=== PATIENT | male | born 1940 | race Caucasian/White ===

== ENCOUNTER → 2016-09-07 | Outpatient (CLI) | payer BC | END | disposition home or self-care (01) | LOC: C.LAB1850 07:50 | PROVIDERS: ATTEND Urology | DX: Z12.5 Encounter for screening for malignant neoplasm of prostate (principal) ==

== ENCOUNTER → 2017-03-17 | Outpatient (CLI) | payer BC ==
[2017-03-17 13:15] LABS: LYME DISEASE AB IGG NEG (NEG); LYME DISEASE AB IGM NEG (NEG)
== END | disposition home or self-care (01) ==
LOC: C.LAB1850 10:41
PROVIDERS: ATTEND Physician Assistant
DX: M79.1 Myalgia (principal)

== ENCOUNTER → 2017-11-26 | Outpatient (CLI) | payer OTHER ==
--- NOTE | 2017-11-26 13:45 | DIAGNOSTIC IMAGING REPORT ---
BILATERAL LOWER EXTREMITY VENOUS DOPPLER STUDY CLINICAL HISTORY: DIMINISHED PULSE BILATERAL COMPARISON STUDY: None. FINDINGS: Minimal scattered calcified plaque within the bilateral lower extremity arterial systems. Normal velocities and phasic waveforms seen throughout. No elevated velocities to suggest an abscess. No areas of arterial occlusion. The ABIs were unable to be performed due to a machine malfunction. IMPRESSION: No significant stenosis or occlusion within the bilateral lower extremity arterial systems. Electronically signed by: Seth Roman M.D. 11/26/2017 1:43 PM Dictated Date/Time: 11/26/2017 1:41 PM
== END | disposition home or self-care (01) ==
LOC: C.ULTR 12:10
PROVIDERS: ATTEND Orthopaedic Surgery Sports Medicine
DX: R09.89 Other specified symptoms and signs involving the circulatory and respiratory systems (principal)

== ENCOUNTER 2019-12-14 13:39 | Observation (INO) ==
[2019-12-14] MEDS ORDERED: OPTIRAY 320 125ml IV ONE (14:07)
--- NOTE | 2019-12-14 14:08 | Emergency Department Note ---
History of Present Illness General Chief complaint: Neuro Symptoms/Deficit Stated complaint: TROUBLE SPEAKING Time Seen by Provider: 12/14/19 13:53 History of Present Illness Maximum Pain Intensity: 0 This is a 79-year-old male presenting to the emergency department accompanied by his son for evaluation of difficulty speaking. The patient is reportedly usually healthy and was working outside with his son today. Evidently around 1 PM to 1:15 PM, roughly 30 minutes prior to arrival, the patient was noted to have difficulty with using his words. The patient was able to speak, however he could not complete sentences or express his thoughts fully. The son states he noticed this very distinctly, and was a large change from earlier this morning. The patient is not having headache, lightheadedness, dizziness, neck pain, chest pain, chest tightness, or shortness of breath. He feels like he is able to move his arms and legs without difficulty. He does not report any weakness or heaviness into the hands or feet The patient has not had any recent travel history. He does not have a history of dysrhythmia or stroke himself. No strong family history of similar episodes. He did have a colonoscopy a week ago that was reportedly unremarkable. The patient himself rates his discomfort a 0/10. Home Medications Home Medications Medication Instructions Recorded Confirmed Type No Known Home Medications 12/14/19 12/14/19 History Allergies Allergy/AdvReac Type Severity Reaction Status Date / Time No Known Drug Allergies Allergy Verified 12/14/19 14:21 Past Med/Surg History Medical History (Updated 12/14/19 @ 20:54 by Severo Zuniga MD) BPH (benign prostatic hyperplasia) H/O Mohs micrographic surgery for skin cancer Hyperlipidemia Osteoarthritis Surgical History (Updated 11/28/19 @ 10:06 by Deja Franco RN) H/O shoulder surgery bilat History of arthroscopy of knee left History of colonoscopy Hx of surgical procedure removal of tongue growth with lazer> 5 yrs ago S/P trigger finger release left Family History Mother Diabetes Other No family history of adverse response to anesthesia Social History Smoking Status: Never smoker Second Hand Exposure: No; Hx Alcohol Use: Yes Alcohol type: beer Hx Substance Use: No Preferred Language: Estonian Communication Ability: Effective Tai Chi Instructor Required: No Beliefs That Will Affect Care: None Current Living Situation: Family Feels Safe at Home: Yes Physical Activity Frequency: Daily Review of Systems A total of 10 systems reviewed and were otherwise negative Physical Exam Vital Signs Vital Signs - 24 hr 12/14/19 13:41 12/14/19 14:02 12/14/19 14:19 Temperature 36.8 C Temperature Source Oral Pulse Rate 93 H 94 H 104 H Pulse Rate from SpO2 Sensor Respiratory Rate 20 20 16 Blood Pressure 183/105 H Blood Pressure Mean 131 Pulse Oximetry 97 Oxygen Delivery Method Room Air Sepsis Recent Fever Within 48 Hours No Sepsis New/Unexplained Change in Mental Status No Sepsis Action Taken by Nursing No Action Required 12/14/19 14:20 12/14/19 14:30 12/14/19 14:40 Temperature Temperature Source Pulse Rate 109 H 105 H 96 H Pulse Rate from SpO2 Sensor Respiratory Rate 15 21 20 Blood Pressure Blood Pressure Mean Pulse Oximetry Oxygen Delivery Method Sepsis Recent Fever Within 48 Hours Sepsis New/Unexplained Change in Mental Status Sepsis Action Taken by Nursing 12/14/19 14:50 12/14/19 15:00 12/14/19 15:01 Temperature Temperature Source Pulse Rate 92 H 85 85 Pulse Rate from SpO2 Sensor Respiratory Rate 23 26 H 25 H Blood Pressure 153/88 H Blood Pressure Mean 109 Pulse Oximetry Oxygen Delivery Method Sepsis Recent Fever Within 48 Hours Sepsis New/Unexplained Change in Mental Status Sepsis Action Taken by Nursing 12/14/19 15:28 12/14/19 15:30 12/14/19 15:40 Temperature Temperature Source Pulse Rate 69 78 67 Pulse Rate from SpO2 Sensor 78 68 Respiratory Rate 23 22 22 Blood Pressure Blood Pressure Mean Pulse Oximetry 95 95 Oxygen Delivery Method Sepsis Recent Fever Within 48 Hours Sepsis New/Unexplained Change in Mental Status Sepsis Action Taken by Nursing 12/14/19 15:50 12/14/19 16:00 12/14/19 16:10 Temperature Temperature Source Pulse Rate 72 75 68 Pulse Rate from SpO2 Sensor 73 75 70 Respiratory Rate 22 15 14 Blood Pressure Blood Pressure Mean Pulse Oximetry 94 95 94 Oxygen Delivery Method Sepsis Recent Fever Within 48 Hours Sepsis New/Unexplained Change in Mental Status Sepsis Action Taken by Nursing 12/14/19 16:20 12/14/19 16:30 Temperature Temperature Source Pulse Rate 70 72 Pulse Rate from SpO2 Sensor 71 74 Respiratory Rate 21 24 Blood Pressure Blood Pressure Mean Pulse Oximetry 97 96 Oxygen Delivery Method Sepsis Recent Fever Within 48 Hours Sepsis New/Unexplained Change in Mental Status Sepsis Action Taken by Nursing VITALS: Vitals are noted on the nurse's note and reviewed by myself. Vital signs stable. GENERAL: Well appearing white male who is cooperative with the examination. He is not slurring his words, but has distinct expressive aphasia HEAD: Normocephalic atraumatic. EARS: External ear normal. External auditory canals clear, tympanic membranes pearly nogueira without erythema or effusion bilaterally. EYES: Pupils equal round and reactive to light and accommodation. Conjunctivae without injection, sclerae without icterus. Extraocular movements intact. NOSE: Patent, turbinates without inflammation or discharge. MOUTH: Mucous membranes moist. Tonsils are not enlarged. Pharynx without erythema, blood, or exudate. Uvula midline. Airway patent. NECK: Supple without nuchal rigidity. No lymphadenopathy. No thyromegaly. Cervical spine is nontender. HEART: Regular rate and rhythm without murmurs gallops or rubs. LUNGS: Clear to auscultation bilaterally without wheezes, rales or rhonchi. No retractions or accessory muscle use. ABDOMEN: Positive normal bowel sounds x 4. Soft, nontender, without masses or organomegaly. No guarding or rebound tenderness. MUSCULOSKELETAL: No muscle atrophy, erythema, or edema noted. Full range of motion in all extremities. Patient was able to walk in and out of the bathroom without notable deficit. Reading Recovery Teacher strength is 5/5. He is with full strength to the bilateral upper and lower extremities. NEURO: Patient was alert and oriented to person place and time. No facial droop noted. Normal [id number]. Course Administered Medications Discontinued Medications Aspirin (Aspirin Chew 324 Mg) 324 mg PO NOW STA Stop: 12/14/19 14:42 Last Admin: 12/14/19 14:50 Dose: 324 mg Documented by: [id number] Ioversol (Optiray 320 125ml) 120 ml IV ONCE ONE Stop: 12/14/19 14:08 Last Admin: 12/14/19 14:08 Dose: 120 ml Documented by: [id number] Critical Care Time I have personally spent greater than 30 minutes of critical care time in the direct management of this patient. This includes bedside care, interpretation of diagnostic studies, and testing, discussion with consultants, patient, and family members, and other required patient management activities. This 30 minutes is in excess of all separately billable procedures. Medical Decision Making Differential Diagnosis Differential includes acute coronary syndrome, myocardial infarction, CVA, TIA, anemia, infection, pneumonia, UTI, pyelonephritis, poor nutrition, dehydration, electrolyte disturbance,hypoglycemia. Laboratory Data Result diagrams: 12/14/19 14:06 12/14/19 14:06 Lab Results 12/14/19 12/14/19 12/14/19 Range/Units 14:04 14:06 14:06 WBC 6.08 (4.8-10.8) K/uL RBC 4.90 (4.7-6.1) M/uL Hgb 16.9 (14.0-18.0) g/dL Hct 47.6 (42-52) % MCV 97.1 (80-100) fL MCH 34.5 H (25-34) pg MCHC 35.5 (32-36) g/dL RDW Std Deviation 45.3 (36.4-46.3) fL RDW Coeff of Elo 12.8 (11.5-14.5) % Plt Count 218 (130-400) K/uL MPV 9.2 (7.4-10.4) fL Immature Gran % (Auto) 0.2 % Neut % (Auto) 55.7 % Lymph % (Auto) 32.1 % Winkler % (Auto) 6.7 % Eos % (Auto) 4.6 % Baso % (Auto) 0.7 % Neut # (Auto) 3.39 (1.4-6.5) K/uL Lymph # (Auto) 1.95 (1.2-3.4) K/uL Winkler # (Auto) 0.41 (0.11-0.59) K/uL Eos # (Auto) 0.28 (0-0.5) K/uL Baso # (Auto) 0.04 (0-0.2) K/uL Immature Gran # (Auto) 0.01 (0.00-0.02) K/uL PT (9.0-12.0) Seconds INR (0.9-1.1) APTT (21.0-31.0) Seconds PTT Ratio Sodium (136-145) mmol/L Potassium (3.5-5.1) mmol/L Chloride (98-107) mmol/L Carbon Dioxide (21-32) mmol/L Anion Gap (3-11) BUN (7-18) mg/dl Creatinine (0.6-1.4) mg/dl Est Cr Clr Drug Dosing ml/min Est GFR ( Amer) Est GFR (Non-Af Amer) BUN/Creatinine Ratio (10-20) Glucose (70-99) mg/dl POC Glucose 103 H (70-99) mg/dl Calcium (8.5-10.1) mg/dl Magnesium (1.8-2.4) mg/dl Total Bilirubin (0.2-1) mg/dl AST (15-37) U/L ALT (12-78) U/L Alkaline Phosphatase (45-117) U/L Troponin I (0-0.045) ng/ml Total Protein (6.4-8.2) gm/dl Albumin (3.4-5.0) gm/dl Globulin (2.5-4.0) gm/dl Albumin/Globulin Ratio (0.9-2) Urine Color Urine Appearance (Clear) Urine pH (4.5-7.5) Ur Specific [place] (1.000-1.030) Urine Protein (Negative) Urine Glucose (UA) (Negative) Urine Ketones (Negative) Urine Blood (Negative) Urine Nitrite (Negative) Urine Bilirubin (Negative) Urine Urobilinogen (Negative) Ur Leukocyte Esterase (Negative) Blood Type A Positive Antibody Screen NEGATIVE 12/14/19 12/14/19 12/14/19 Range/Units 14:06 14:06 14:31 WBC (4.8-10.8) K/uL RBC (4.7-6.1) M/uL Hgb (14.0-18.0) g/dL Hct (42-52) % MCV (80-100) fL MCH (25-34) pg MCHC (32-36) g/dL RDW Std Deviation (36.4-46.3) fL RDW Coeff of Elo (11.5-14.5) % Plt Count (130-400) K/uL MPV (7.4-10.4) fL Immature Gran % (Auto) % Neut % (Auto) % Lymph % (Auto) % Winkler % (Auto) % Eos % (Auto) % Baso % (Auto) % Neut # (Auto) (1.4-6.5) K/uL Lymph # (Auto) (1.2-3.4) K/uL Winkler # (Auto) (0.11-0.59) K/uL Eos # (Auto) (0-0.5) K/uL Baso # (Auto) (0-0.2) K/uL Immature Gran # (Auto) (0.00-0.02) K/uL PT 11.5 (9.0-12.0) Seconds INR 1.1 (0.9-1.1) APTT 29.8 (21.0-31.0) Seconds PTT Ratio 1.1 Sodium 135 L (136-145) mmol/L Potassium 4.0 (3.5-5.1) mmol/L Chloride 103 (98-107) mmol/L Carbon Dioxide 23 (21-32) mmol/L Anion Gap 8.0 (3-11) BUN 12 (7-18) mg/dl Creatinine 1.13 (0.6-1.4) mg/dl Est Cr Clr Drug Dosing 60.4 ml/min Est GFR ( Amer) 71.8 Est GFR (Non-Af Amer) 61.9 BUN/Creatinine Ratio 10.6 (10-20) Glucose 101 H (70-99) mg/dl POC Glucose (70-99) mg/dl Calcium 9.3 (8.5-10.1) mg/dl Magnesium 2.2 (1.8-2.4) mg/dl Total Bilirubin 1.3 H (0.2-1) mg/dl AST 19 (15-37) U/L ALT 34 (12-78) U/L Alkaline Phosphatase 74 (45-117) U/L Troponin I < 0.015 (0-0.045) ng/ml Total Protein 7.7 (6.4-8.2) gm/dl Albumin 4.1 (3.4-5.0) gm/dl Globulin 3.6 (2.5-4.0) gm/dl Albumin/Globulin Ratio 1.1 (0.9-2) Urine Color Yellow Urine Appearance Clear (Clear) Urine pH 6.0 (4.5-7.5) Ur Specific [place] 1.009 (1.000-1.030) Urine Protein Negative (Negative) Urine Glucose (UA) Negative (Negative) Urine Ketones Negative (Negative) Urine Blood Negative (Negative) Urine Nitrite Negative (Negative) Urine Bilirubin Negative (Negative) Urine Urobilinogen Negative (Negative) Ur Leukocyte Esterase Negative (Negative) Blood Type Antibody Screen Imaging Data Radiologist's Impression: CT head/brain wo con CLINICAL HISTORY: Stroke evaluation COMPARISON STUDY: 11/24/2018 TECHNIQUE: Axial CT of the brain is performed from the vertex to the skull base. IV contrast was not administered for this examination. A dose lowering technique was utilized adhering to the principles of ALARA. CT DOSE: FINDINGS: No intra or extra-axial mass lesions are visualized. There is no CT evidence of acute cortical infarction. There is no evidence of midline shift. There is no acute hemorrhage. No calvarial fractures are visualized. There are patchy moderate matter hypodensities likely on a small vessel basis. There is mild ventricular dilatation similar to the prior study and likely secondary to volume loss There is mild ethmoid mucosal thickening IMPRESSION: No acute intracranial findings CT angio head w con CLINICAL HISTORY: 79 years-old Male with Stroke evaluation . Acute strokelike symptoms COMPARISON STUDY: Head CT and CTA head neck of same day TECHNIQUE: Following the IV administration of 120 cc of Optiray 320, CT angiogram of the brain was performed from the skull base to the vertex. Images are reviewed in the axial, sagittal, and coronal planes. 3-D MIPS images are created and assessed. IV contrast was administered without complication. All measurements were obtained according to NASCET criteria. A dose lowering technique was utilized adhering to the principles of ALARA. CT DOSE: 1321.93 mGy.cm FINDINGS: CT ANGIOGRAM OF THE BRAIN: There is mild calcified plaque of the cavernous and supraclinoid segments of the internal carotid arteries without high-grade stenosis. The right anterior cerebral artery is patent and normal. The left anterior cerebral artery is not visualized and may be developmentally diminutive. Imaged vertebral arteries appear patent. The basilar artery is patent. There is a 4 mm segment of high- grade stenosis involving the right P1 segment on image 95 series 5. The left posterior cerebral artery is patent. Cerebral venous sinuses are patent. Age-related involutional changes. Patchy white matter hypodensities suggestive of chronic microvascular ischemic disease. No abnormal intracranial enhancement mild mucosal thickening of the paranasal sinuses. Mastoid air cells are clear. IMPRESSION: 1. 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 2. No additional high-grade stenosis, aneurysm, dissection, or proximal branch occlusion. CT angio neck with con CLINICAL HISTORY: Stroke evaluation COMPARISON STUDY: No previous studies for comparison. TECHNIQUE: CT angiography was performed from the aortic arch to the skull base. MIP imaging was performed. The patient was scanned in a dynamic helical fashion during intravenous administration of 120 cc of Optiray 320. A dose lowering technique was utilized adhering to the principles of ALARA. CT DOSE: There is mild ectasia of the ascending thoracic aorta which measures 37 mm. Technique: CT angiogram of the carotid and vertebral arteries was obtained using intravenous contrast and 3-D reconstruction. NASCET criteria was utilized. Findings: Atheromatous changes are present the level the right carotid bulb. There is no evidence of hemodynamically significant internal carotid artery stenosis. There is no dissection. There is no evidence for aneurysm Atheromatous changes are present the level the left carotid bulb. There is no evidence for hemodynamically significant stenosis. There is no evidence for dissection. There is no evidence for aneurysm. There is no evidence of hemodynamically significant vertebral stenosis. There is no evidence of vertebral dissection. IMPRESSION: No evidence of hemodynamically significant carotid or vertebral artery stenosis. No evidence of dissection. ECG Data Attestation: I personally reviewed and interpreted this ECG as follows: Indication: + altered mental status Additional Comments: Normal sinus rhythm @[address] elevation Cannot rule out Inferior infarct , age undetermined Abnormal ECG When compared with ECG of 25-DEC-2018 17:18, No significant change was found Blood Pressure Blood Pressure Findings: Elevated blood pressure Blood Pressure Disposition: further management by hospitalist [facility] Narrative Physical exam and history were performed. Nursing notes, EMR, and Medication List were personally reviewed. Patient appears to have difficulty speaking as his primary presenting complaint. The patient was seen immediately upon his arrival to the ER room. The patient does have expressive aphasia without additional significant deficit. The patient does attempt to give the history, but there seems to be large blank spots in his memory and ability to explain himself. Because of his presentation a stroke alert was immediately called. The case was discussed with my attending physician, Dr. Herrmann, who also independently evaluated the patient and agrees. The patient was sent to CT scan and neurology was consulted. The patient's blood work is as above and was reviewed. He does not have a significantly elevated white blood cell count, gross anemia, bandemia, or significant electrolyte imbalance. INR is 1.1. Glucose is 101. Magnesium is 2.2. Troponin is normal. Transaminases are not diagnostic. Urine is without evidence of infection. CT scans were reviewed by myself and radiology, revealing only an area of stenosis of the right posterior cerebral artery but no acute bleed findings. The case was discussed with Dr. Brennan of [place] [facility] by telephone, as well as via tele-stroke. By the time the patient was evaluated by neurology he did have improvement of his symptoms. Even the patient's son agrees that his speech is essentially normal, and on repeat evaluation the patient is able to speak without obvious deficit. Reviewing the imaging and the patient exam, Dr. Brennan recommends the patient be admitted to the facility and start on aspirin. The patient was able to complete a dysphasia screening and was given oral aspirin. The patient remained in stable condition without recurrence of his symptoms. The case was discussed with the on-call hospitalist team, who agreed to evaluate the patient for further management. Please see their dictation for further patient course, plan, and disposition. The chart was completed utilizing bulletn. Voice Recognition Software. Grammatical errors, random word insertions, pronoun errors, and incomplete sentences are an occasional consequence of this system due to software limitations, ambient noise, and hardware issues. Any formal questions or concerns about the content, text, or information contained within the body of this dictation should be directly addressed to the provider for clarification. . Impression & Plan TIA (transient ischemic attack), Expressive aphasia Discharge Plan Visit Data Chief Complaint: Neuro Symptoms/Deficit Stated Complaint: TROUBLE SPEAKING ED Provider: Yobani Herrmann ED Midlevel Provider: Robe Dc Discharge Problem: TIA (transient ischemic attack), Expressive aphasia Patient Disposition: Admitted As Inpatient Discharge Instructions Interventions: ED Discharge Assessment Last Done: 12/14/19 19:30
[2019-12-14] MEDS ORDERED: SODIUM CHLORIDE 0.9% 1000ML 1,000 ML IV SCH (14:15)
[2019-12-14 14:17] LABS: Basophils # (auto) 0.04 K/uL (0-0.2); Basophils % (auto) 0.7 %; Eosinophils # (auto) 0.28 K/uL (0-0.5); Eosinophils % (auto) 4.6 %; Hematocrit (blood only) 47.6 % (42-52); Hemoglobin 16.9 g/dL (14.0-18.0); Immature Granulocytes # (auto) 0.01 K/uL (0.00-0.02); Immature Granulocytes % (auto) 0.2 %; Lymphocytes # (auto) 1.95 K/uL (1.2-3.4); Lymphocytes % (auto) 32.1 %; Mean Corpuscular Hemoglobin 34.5 pg (25-34); Mean Corpuscular Hgb Conc 35.5 g/dL (32-36); Mean Corpuscular Volume 97.1 fL (80-100); Mean Platelet Volume 9.2 fL (7.4-10.4); Monocytes # (auto) 0.41 K/uL (0.11-0.59); Monocytes % (auto) 6.7 %; Neutrophils # (auto) 3.39 K/uL (1.4-6.5); Neutrophils % (auto) 55.7 %; Platelet Count 218 K/uL (130-400); RDW Coefficient of Variation 12.8 % (11.5-14.5); RDW Standard Deviation 45.3 fL (36.4-46.3); White Blood Count 6.08 K/uL (4.8-10.8)
--- NOTE | 2019-12-14 14:20 | CT Scan Report ---
CT head/brain wo con CLINICAL HISTORY: Stroke evaluation COMPARISON STUDY: 11/24/2018 TECHNIQUE: Axial CT of the brain is performed from the vertex to the skull base. IV contrast was not administered for this examination. A dose lowering technique was utilized adhering to the principles of ALARA. CT DOSE: FINDINGS: No intra or extra-axial mass lesions are visualized. There is no CT evidence of acute cortical infarc tion. There is no evidence of midline shift. There is no acute hemorrhage. No calvarial fractures ar e visualized. There are patchy moderate matter hypodensities likely on a small vessel basis. There is mild ventricular dilatation similar to the prior study and likely secondary to volume loss There is mild ethmoid mucosal thickening IMPRESSION: No acute intracranial findings ACT 112: Negative or not required by law. Electronically signed by: Chip Renee M.D. 12/14/2019 2:19 PM
--- NOTE | 2019-12-14 14:23 | CT Scan Report ---
CT angio neck with con CLINICAL HISTORY: Stroke evaluation COMPARISON STUDY: No previous studies for comparison. TECHNIQUE: CT angiography was performed from the aortic arch to the skull base. MIP imaging was perfo rmed. The patient was scanned in a dynamic helical fashion during intravenous administration of 120 c c of Optiray 320. A dose lowering technique was utilized adhering to the principles of ALARA. CT DOSE: There is mild ectasia of the ascending thoracic aorta which measures 37 mm. Technique: CT angiogram of the carotid and vertebral arteries was obtained using intravenous contrast and 3-D reconstruction. NASCET criteria was utilized. Findings: Atheromatous changes are present the level the right carotid bulb. There is no evidence of hemodynami mayco significant internal carotid artery stenosis. There is no dissection. There is no evidence for aneurysm Atheromatous changes are present the level the left carotid bulb. There is no evidence for hemodynami mayco significant stenosis. There is no evidence for dissection. There is no evidence for aneurysm. There is no evidence of hemodynamically significant vertebral stenosis. There is no evidence of verte bral dissection. IMPRESSION: No evidence of hemodynamically significant carotid or vertebral artery stenosis. No evidence of disse ction. ACT 112: Negative or not required by law. Electronically signed by: Chip Renee M.D. 12/14/2019 2:22 PM
--- NOTE | 2019-12-14 14:28 | CT Scan Report ---
CT angio head w con CLINICAL HISTORY: 79 years-old Male with Stroke evaluation . Acute strokelike symptoms COMPARISON STUDY: Head CT and CTA head neck of same day TECHNIQUE: Following the IV administration of 120 cc of Optiray 320, CT angiogram of the brain was pe rformed from the skull base to the vertex. Images are reviewed in the axial, sagittal, and coronal pl anes. 3-D MIPS images are created and assessed. IV contrast was administered without complication. Al l measurements were obtained according to NASCET criteria. A dose lowering technique was utilized adh ering to the principles of ALARA. CT DOSE: 1321.93 mGy.cm FINDINGS: CT ANGIOGRAM OF THE BRAIN: There is mild calcified plaque of the cavernous and supraclinoid segments of the internal carotid art eries without high-grade stenosis. The right anterior cerebral artery is patent and normal. The left anterior cerebral artery is not visualized and may be developmentally diminutive. Imaged vertebral ar teries appear patent. The basilar artery is patent. There is a 4 mm segment of high-grade stenosis in volving the right P1 segment on image 95 series 5. The left posterior cerebral artery is patent. Cere bral venous sinuses are patent. Age-related involutional changes. Patchy white matter hypodensities suggestive of chronic microvascul ar ischemic disease. No abnormal intracranial enhancement mild mucosal thickening of the paranasal si nuses. Mastoid air cells are clear. IMPRESSION: 1. 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 2. No additional high-grade stenosis, aneurysm, dissection, or proximal branch occlusion. ACT 112: Negative or not required by law. The above report was generated using voice recognition software. It may contain grammatical, syntax o r spelling errors. Electronically signed by: Pawan Vasquez M.D. 12/14/2019 2:27 PM
[2019-12-14 14:30] LABS: INR 1.1 (0.9-1.1); Partial Thromboplastin Ratio 1.1; Partial Thromboplastin Time 29.8 Seconds (21.0-31.0); Prothrombin Time 11.5 Seconds (9.0-12.0)
[2019-12-14 14:34] LABS: Alanine Aminotransferase 34 U/L (12-78); Albumin Level 4.1 gm/dl (3.4-5.0); Aspartate Aminotransferase 19 U/L (15-37); BUN Creatinine Ratio 10.6 (10-20); Blood Urea Nitrogen 12 mg/dl (7-18); Calcium 9.3 mg/dl (8.5-10.1); Carbon Dioxide 23 mmol/L (21-32); Chloride 103 mmol/L (98-107); Creatinine Clr Calc Pharmacy 60.4 ml/min; Est GFR (African American) 71.8; Est GFR (Non-African American) 61.9; Glucose 101 mg/dl (70-99); Magnesium 2.2 mg/dl (1.8-2.4); Sodium 135 mmol/L (136-145)
[2019-12-14 14:39] LABS: Albumin Globulin Ratio 1.1 (0.9-2); Alkaline Phosphatase 74 U/L (45-117); Bilirubin,Total 1.3 mg/dl (0.2-1); Globulin 3.6 gm/dl (2.5-4.0); Total Protein 7.7 gm/dl (6.4-8.2); Troponin I < 0.015 ng/ml (0-0.045)
[2019-12-14] MEDS ORDERED: ASPIRIN CHEW 324 MG PO STA (14:41)
[2019-12-14 14:48] LABS: Appearance Urine Clear (Clear); Bilirubin Urine Negative (Negative); Blood Urine Negative (Negative); Color Urine Yellow; Glucose Urine UA Negative (Negative); Ketones Urine Negative (Negative); Leukocyte Esterase Urine Negative (Negative); Nitrite Urine Negative (Negative); Protein Urine Negative (Negative); Specific Gravity Urine 1.009 (1.000-1.030); Urobilinogen Urine Negative (Negative)
--- NOTE | 2019-12-14 16:50 | History & Physical Report ---
Date of Service December 14, 2019 Assessment & Plan (1) TIA (transient ischemic attack): Symptoms now resolved. 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 Recommend outpatient cardiac monitoring if no arrhythmias seen on telemetry. TTE HbA1c and lipid panel with a.m. labs Consult neurology (2) Expressive aphasia: Symptoms now completely resolved. Treatment as above. (3) Hyperlipidemia: Notable history of this. On no medications. Start atorvastatin as above. Lipid panel with a.m. labs Admission and Anticipated Discharge Date Admission Date: 12/14/2019 History of Present Illness Chief Complaint: Expressive aphasia Primary Care Provider: Arsen Reyez MD David Bolaños is a 79-year-old male with no previous cardiovascular disease who presents to the ER with expressive dysphasia lasting approximately 2 hours. Symptom onset 1 PM, prior to this he felt completely well with no recent illness. No associated fevers, chills, chest pain, shortness of breath, extremity weakness, facial droop, vertigo, lightheadedness, dizziness, change in hearing or vision. When seen in the ER his symptoms are completely resolved. He was a telemetry stroke will be given resolving symptoms no tPA was given. His care was discussed with neurology by the ER physician and he was given aspirin 324 mg. He does have a history of orthostatic sounding hypertension with lightheadedness after he bends over. He has a notable episode of syncope in December which was thought to be dehydration at the time. However patient reports having no presyncopal symptoms prior to this and unexplained weakness in all 4 extremities afterwards. He was discharged from the ER on that occasion. No vertigo. Allergies Allergy/AdvReac Type Severity Reaction Status Date / Time No Known Drug Allergies Allergy Verified 12/14/19 14:21 Home Medications Home Medications Medication Instructions Recorded Confirmed Type No Known Home Medications 12/14/19 12/14/19 History Past Med/Surg History Medical History BPH (benign prostatic hyperplasia) H/O Mohs micrographic surgery for skin cancer Hyperlipidemia Osteoarthritis Surgical History H/O shoulder surgery bilat History of arthroscopy of knee left History of colonoscopy Hx of surgical procedure removal of tongue growth with lazer> 5 yrs ago S/P trigger finger release left Family History Mother , age 83 Diabetes Father , age 83 of uncertain causes. No problems noted. Other No family history of adverse response to anesthesia Social History Smoking Status: Never smoker Second Hand Exposure: No; Do You Dip or Chew Tobacco: No; Hx Alcohol Use: Yes Alcohol type: beer Alcohol Intake Frequency Comment: Two beers each evening. He has done this for years. 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, [employer] Feels Safe at Home: Yes Physical Activity Frequency: Daily Review of Systems Review of Systems: All systems reviewed & are unremarkable except as noted in HPI & below Physical Exam Constitutional: WD/WN, vitals as above Eyes: PERRL, conjunctivae normal, anicteric sclerae ENMT: external ear and nose normal, oropharynx normal Neck: trachea midline, no thyromegaly Respiratory: normal respiratory effort, lungs clear to auscultation Cardiovascular: RRR, no murmur, no edema Gastrointestinal (Abdomen): normal bowel sounds, soft, nontender, no hepatosplenomegaly Musculoskeletal: no cyanosis or clubbing, extremities motor strength 5/5 Skin: no rashes, warm and dry Neurologic: CN's II-XI intact bilaterally, moves all extremities and awake; no focal motor deficits and not confused Speech / Cognition: normal speech Motor/Sensory: no tremor and no pronator drift Coordination: normal [id number]-zf-[id number] test and normal zmpj-ug-kwgn test Psychiatric: A+Ox3, euthymic affect Genitourinary: no CVA tenderness Lymphatic: no cervical or axillary lymphadenopathy Results & Data Results & Data ([facility]) Vital Signs (Past 12 Hours) Vital Signs Temp Pulse Resp BP Pulse Ox 12/14/19 16:00 75 15 95 12/14/19 15:50 72 22 94 12/14/19 15:40 67 22 95 12/14/19 15:30 78 22 95 12/14/19 15:28 69 23 12/14/19 15:01 85 25 H 12/14/19 15:00 85 26 H 153/88 H 12/14/19 14:50 92 H 23 12/14/19 14:40 96 H 20 12/14/19 14:30 105 H 21 12/14/19 14:20 109 H 15 12/14/19 14:19 104 H 16 12/14/19 14:02 94 H 20 12/14/19 13:41 36.8 C 93 H 20 183/[address] head/brain wo con IMPRESSION: No acute intracranial findings CT angio head w con IMPRESSION: 1. 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 2. No additional high-grade stenosis, aneurysm, dissection, or proximal branch occlusion. CT angio neck with con IMPRESSION: No evidence of hemodynamically significant carotid or vertebral artery stenosis. No evidence of dissection. ECG Indication: other (Stroke-like symptoms) Rate (beats per minute): 85 Rhythm: normal sinus Comparison ECG Date: from (December 25, 2018) Change: no significant change Code Status & VTE Plan Code Status Full VTE Prophylaxis Plan VTE Prophylaxis will be ordered: Yes PG Care Time/CCT Total # of Minutes Spent Total Time Spent with Patient: Total time spent is greater than 50% in coordination of care (as documented) at patient's floor/unit and/or counseling patient: Coding Level of Care Code 18359 Initial Inpt Care Lvl 2 Diagnoses TIA (transient ischemic attack) G45.9 Expressive aphasia R47.01 Hyperlipidemia E78.5
[2019-12-14] MEDS ORDERED: PHARMACIST DISCHARGE MED REC CONSULT PRN (20:58)
[2019-12-14] MEDS ORDERED: ACETAMINOPHEN 325 MG TAB PO PRN (20:58)
[2019-12-14] MEDS ORDERED: ATORVASTATIN 40 MG TAB PO SCH (21:00)
[2019-12-14] MEDS ORDERED: PNEUMOCOCCAL ADMINISTRATION CHARGE ONE (21:12)
[2019-12-14] MEDS ORDERED: PNEUMOCOCCAL POLYSACCHARIDES 25 MCG/0.5 ML VIAL/SYR IM ONE (21:12)
--- NOTE | 2019-12-15 05:55 | Electrocardiogram Report ---
Test Reason : Blood Pressure : / mmHG Vent. Rate : 085 BPM Atrial Rate : 085 BPM P-R Int : 166 ms QRS Dur : 078 ms QT Int : 394 ms P-R-T Axes : 048 026 055 degrees QTc Int : 468 ms Normal sinus rhythm Cannot rule out Inferior infarct , age undetermined Abnormal ECG When compared with ECG of 25-DEC-2018 17:18, No significant change was found Confirmed by Sree Davis ([id number]) on 12/15/2019 5:55:03 AM Referred By: REFERRED SELF Confirmed By:Sree Davis
--- NOTE | 2019-12-15 07:33 | Magnetic Resonance Report ---
MRI OF THE BRAIN WITHOUT CONTRAST CLINICAL HISTORY: expressive dysphasia COMPARISON STUDY: CT scan dated 12/14/2019 FINDINGS: Sagittal T1, axial diffusion, proton density and T2 weighted axial, coronal FLAIR, and axial T1-weigh chato images were acquired. No intra or extra-axial mass lesions are visualized Axial diffusion-weighted images reveal no evidence of acute or subacute infarction. A 3 mm focus of i ncreased signal within the right medial temporal lobe as visualized on diffusion-weighted images is f elt to be artifactual There is ventricular dilatation, likely secondary to volume loss. Proton density T2-weighted and FLAIR images reveal moderately extensive foci of increased T2 signal w ithin the white matter, likely on a small vessel basis. There are no abnormal flow voids. IMPRESSION: 1. No acute intracranial findings 2. No evidence of acute or subacute infarction 3. Moderately extensive white matter disease 4. Ventricular dilatation, likely secondary to volume loss. ACT 112: Negative or not required by law. Electronically signed by: Chip Renee M.D. 12/15/2019 7:31 AM
--- NOTE | 2019-12-15 08:47 | Neurology Consultation ---
Date of Consultation December 15, 2019 Assessment & Plan (1) TIA (transient ischemic attack): (2) Expressive aphasia: (3) Hypertension: (4) Hyperlipidemia: (5) Chronic cerebral ischemia: this patient had the sudden onset of expressive aphasia December 13 lasting approximately 1-1/2 hours. The patient had significant hypertension on admission which may have triggered this event. It is much improved this morning. Currently on neurologic examination he has no focal neurologic findings, meningeal signs, or encephalopathy. He is back to his baseline. Other risk factors for stroke include dyslipidemia by history. Fasting lipid profile is pending. Patient does have right posterior cerebral artery stenosis with no other vascular stenoses of the head or neck. Echocardiogram is pending. 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 Recommendations: 1. Awaiting echocardiogram. 2. Initiate 81 milligram aspirin tablet daily. 3. Awaiting fasting lipid profile and hemoglobin A1c. I would use a regular dose, and not high dose, statin 4. control blood pressure as you are doing, aiming for a mean arterial pressure approximately 100. 5. I can follow as an outpatient in 2-3 weeks. Overall, I spent a total of 110 minutes with this case including review of records, review of MRI films, direct evaluation the patient at bedside, and discussion of the case with the patient and daughter at bedside, RN at bedside, and Dr. Rios, including differential diagnosis and treatment options. History of Present Illness Reason for Consultation: , who I was asked to see at the request of Dr. Zuniga, for neurologic consultation regarding TIA. Requesting Physician: Dr. Zuniga Attending Physician: Jabari Rios History of Present Illness patient has a history dyslipidemia and some elevated blood pressure readings in the past but he was on no medication. He was on baby aspirin for a few years in the past but has not been on it recently. He has no history of cigarette or other tobacco use, diabetes, or heart issues. He was on no medication prior to admission. Patient was in his usual state of very good health when on the morning of December 13 he was putting mulch down in his yard. He felt well and thought he was hydrated. Around 1300, he had the onset of word-finding difficulties. He heard the person and new with the person asked him but he could not get the word out that he wanted. This made him a little bit anxious and confused but his son who was present at the time did not report any obvious confusion. It was just his inability to formulate words or get the right words out. He had no headache or pain, weakness or numbness in the limbs, balance problems, vision issues, or incontinence. December 13, he arrived to the emergency room at 1341 with a temperature of 36.8, pulse 93, respiratory rate 20, blood pressure 183/105, and O2 saturation 97 percent. In the emergency room he was described as having expressive aphasia with no other neurologic deficits. CBC and Chem profile were unremarkable. Urinalysis was. CT scan of the head was unremarkable with no acute changes. CT angiography of the head showed some stenosis in the right [employer]. CT angiography of the neck was unremarkable. MRI of the brain showed no acute stroke. There was more mild to moderate generalized atrophy with some hydrocephalus ex vacuo as well as moderate to extensive small vessel ischemic disease of an old nature. I reviewed these f ilms with the patient and his daughter who was at bedside. By 1430, patient's speech has become back to normal and State thereafter. This morning, the patient's blood pressure was 132/79. He does not have any speech issues and feels back to normal. Allergies Allergy/AdvReac Type Severity Reaction Status Date / Time No Known Drug Allergies Allergy Verified 12/14/19 14:21 Home Medications Home Medications Medication Instructions Recorded Confirmed Type No Known Home Medications 12/14/19 12/14/19 History Patient History Medical History BPH (benign prostatic hyperplasia) H/O Mohs micrographic surgery for skin cancer Hyperlipidemia Osteoarthritis Surgical History H/O shoulder surgery bilat History of arthroscopy of knee left History of colonoscopy Hx of surgical procedure removal of tongue growth with lazer> 5 yrs ago S/P trigger finger release left Family History Mother , age 83 Diabetes Father , age 83 of uncertain causes. No problems noted. Other No family history of adverse response to anesthesia Social History Smoking Status: Never smoker Second Hand Exposure: No; Do You Dip or Chew Tobacco: No; Hx Alcohol Use: Yes Alcohol type: beer Alcohol Intake Frequency Comment: Two beers each evening. He has done this for years. 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 Safe at Home: Yes Physical Activity Frequency: Daily Review of Systems Constitutional: no fever, no fatigue and no weakness Eyes: no diplopia, no eye pain and no worsening vision Ear, Nose, Mouth, Throat: + hearing loss; no ear pain, no tinnitus, no dizziness, no hoarseness and no dysphagia Respiratory: no cough and no dyspnea Cardiovascular: no chest pain, no palpitations and no lightheadedness Gastrointestinal: no abdominal pain, no nausea and no vomiting Genitourinary: no dysuria and no urinary incontinence Musculoskeletal: + neck pain; no back pain, no radicular pain, no joint pain and no myalgia Integumentary: no rash and no lesions Neurologic: no gait abnormality, no localized weakness, no generalized weakness, no tingling, no numbness, no tremor(s), no abnormal movements, no headache(s), no abnormal speech, no confusion and no memory loss Psychiatric: no depression, no irritability, no anxiety, no difficulty concentrating, no confusion and no hallucinations Endocrine: no fatigue and no flushing Hematologic / Lymphatic: no easy bleeding and no easy bruising Allergy / Immunological: no urticaria and no problem reported Exam (Neuro) Physical Exam: The patient is right-handed. The patient is awake, alert, and attentive. Speech is normal without any aphasia or dysarthria. he can name objects, repeat phrases, and has normal spontaneous speech. Mentation and thought processes are intact, with orientation to person, place and time, and normal fund of knowledge. Attention and concentration are n ormal. Mood and affect are normal and appropriate. General appearance and grooming are normal. Short and long-term memory are intact. The discs are sharp with positive venous pulsations bilaterally. There are no exudates, hemorrhages, or blood vessel changes seen. Pupils are 4 mm bilaterally and reactive to light. Extraocular eye muscles are intact without nystagmus. Visual acuity and visual jackson seem normal grossly to confrontation. There are no deficits to sensation in the face in all 3 distributions of the fifth cranial nerve bilaterally. Corneal reflexes are positive bilaterally. Faci al strength and symmetry was normal bilaterally. Hearing Is decreased mildly bilaterally. Palate moves well without asymmetry. There is normal sternocleidomastoid and trapezius (shoulder shrug) strength bilaterally. Tongue is midline with good strength bilaterally. Neck has a full range of motion without discomfort. There are no cervical bruits bilaterally. There are no cranial or ocular bruits. Heart is without murmur. There is a regular rhythm and rate. Cervical paraspinal muscles are mildly tender to palpation spasm. Thoracic and lumbar spine are nontender to palpation. Gait is narrow based, with good arm swing, turns, and stance. Balance is normal eyes open or closed. With outstretched arms there is no drift. There are no resting, postural, or action tremors. There is no ataxia with finger to nose testing. There is good facility in the hands. No other abnormal involuntary movements are noted. Motor strength is 5/5 diffusely in the arms bilaterally including deltoids, bic eps, triceps, brachioradialis, wrist flexors and extensors, ring sewer, and intrinsic hand muscles. Motor strength is 5/5 diffusely in the legs bilaterally including hip flexors, quadriceps, hamstrings, gastrocnemius, tibialis anterior, tibialis posterior, and Peroneii muscles. Toe extensors are normal and there is good bulk in the extensor digitorum brevis muscles bilaterally. The limbs have good tone without rigidity or spasticity. There is no atrophy noted in the muscles. Muscle bulk is normal, there is no tenderness to palpation, no myotonia to percussion, and no fasciculations seen. Sensory examination is intact to touch and pin throughout all 4 limbs diffusely. Reflexes are 2/4 in the biceps, triceps, and brachioradialis tendons bilaterally. quadriceps and Achilles tendon reflexes are absent bilaterally. There is no clonus bilaterally. Toes are downgoing with plantar stimulation bilaterally. Peripheral pulses are present and of normal quality distally in all 4 limbs. There is no peripheral edema noted in the limbs. Results & Data ([facility]) Vital Signs (Past 12 Hours) Vital Signs Temp Pulse Pulse Resp BP Pulse Ox Pulse Ox 12/15/19 08:10 36.7 C 66 18 149/65 H 91 12/15/19 08:08 36.5 C 77 17 157/82 H 95 12/15/19 04:00 36.4 C L 66 18 132/77 96 12/14/19 23:20 62 12/14/19 23:15 36.5 C 61 17 147/80 H 97 12/14/19 21:00 36.7 C 81 18 159/82 H 94 12/14/19 20:58 94 12/14/19 20:44 80 Diagnostic Findings MRI OF THE BRAIN WITHOUT CONTRAST CLINICAL HISTORY: expressive dysphasia COMPARISON STUDY: CT scan dated 12/14/2019 FINDINGS: Sagittal T1, axial diffusion, proton density and T2 weighted axial, coronal FLAIR, and axial T1-weighted images were acquired. No intra or extra-axial mass lesions are visualized Axial diffusion-weighted images reveal no evidence of acute or subacute infarction. A 3 mm focus of increased signal within the right medial temporal lobe as visualized on diffusion-weighted images is felt to be artifactual There is ventricular dilatation, likely secondary to volume loss. Proton density T2-weighted and FLAIR images reveal moderately extensive foci of increased T2 signal within the white matter, likely on a small vessel basis. There are no abnormal flow voids. IMPRESSION: 1. No acute intracranial findings 2. No evidence of acute or subacute infarction 3. Moderately extensive white matter disease 4. Ventricular dilatation, likely secondary to volume loss. ACT 112: Negative or not required by law. Electronically signed by: Chip Renee M.D. 12/15/2019 7:31 AM PG Care Time/CCT Total # of Minutes Spent Total Time Spent with Patient: Total time spent is greater than 50% in coordination of care (as documented) at patient's floor/unit and/or counseling patient: Coding Level of Care Code 31741 OBS Care - Level 3 Diagnoses TIA (transient ischemic attack) G45.9 Expressive aphasia R47.01 Hypertension I10 Hyperlipidemia E78.5 Chronic cerebral ischemia I67.82 Time Spent (min) 110 Comment Add [id number] to this [id number]
[2019-12-15] MEDS ORDERED: ASPIRIN 81 MG ECTAB PO SCH (09:00)
[2019-12-15 09:16] LABS: Basophils # (auto) 0.03 K/uL (0-0.2); Basophils % (auto) 0.5 %; Eosinophils # (auto) 0.26 K/uL (0-0.5); Eosinophils % (auto) 4.7 %; Hematocrit (blood only) 48.1 % (42-52); Hemoglobin 17.3 g/dL (14.0-18.0); Immature Granulocytes # (auto) 0.01 K/uL (0.00-0.02); Immature Granulocytes % (auto) 0.2 %; Lymphocytes % (auto) 23.3 %; Mean Corpuscular Hemoglobin 34.2 pg (25-34); Mean Corpuscular Volume 95.1 fL (80-100); Mean Platelet Volume 9.5 fL (7.4-10.4); Monocytes # (auto) 0.28 K/uL (0.11-0.59); Neutrophils % (auto) 66.3 %; Platelet Count 207 K/uL (130-400); RDW Coefficient of Variation 12.7 % (11.5-14.5); RDW Standard Deviation 43.9 fL (36.4-46.3); Red Blood Count 5.06 M/uL (4.7-6.1); White Blood Count 5.58 K/uL (4.8-10.8)
[2019-12-15 09:47] LABS: BUN Creatinine Ratio 12.2 (10-20); Calcium 9.4 mg/dl (8.5-10.1); Creatinine Clr Calc Pharmacy 60.8 ml/min; Est GFR (African American) 72.5; Est GFR (Non-African American) 62.6; Potassium 3.8 mmol/L (3.5-5.1)
[2019-12-15 09:52] LABS: Estimated Average Glucose 103 mg/dl; Hemoglobin A1C 5.2 % (4.5-5.6)
--- NOTE | 2019-12-15 14:02 | XCELERA ---
[id number]
[2019-12-15] MEDS ORDERED: STROKE PATIENT DISCHARGE STA (14:27)
--- NOTE | 2019-12-15 14:57 | Pharmacy Report ---
Pharmacist Stroke Counseling - Date of Service December 15, 2019 - Scope: Pharmacy has been consulted to provide medication discharge counseling for this patient admitted with transient ischemic attack as per the Pharmacist Discharge Counseling for Stroke Patients Protocol. - Medications on Discharge: Home Medications Medication Instructions Recorded Confirmed No Known Home Medications 12/14/19 12/14/19 New Rx's Medication Instructions Recorded aspirin 81 mg PO QAM #30 tab 12/15/19 atorvastatin 40 mg PO QPM #30 tab 12/15/19 - Action: The above medications, specifically ones for stroke treatment/prophylaxis, have been reviewed in detail with the patient prior to discharge. This includes indication, common adverse reactions, drug interactions, and medication administration. Medication counseling has been employed using the teach-back method to ensure understanding. - Outcome: The patient have demonstrated understanding of the medications. Additional comments: Spoke over the phone with patient today. Reviewed new medications to prevent stroke including Aspirin and Atorvastatin. Discussed why they are being used and common side effects in great detail. Reviewed how to use the medications, what to do if doses are missed, common drug interactions, common side effects, what to watch out for while using the medications. Pt verbalized understanding and restated the sullivan points of each medication. Thank you for allowing pharmacy to be involved in the care of this patient. Please call [phone] with any additional questions
--- NOTE | 2019-12-24 16:06 | Discharge Summary ---
Date of Service December 15, 2019 Admission HPI Per Admitting Provider David Bolaños is a 79-year-old male with no previous cardiovascular disease who presents to the ER with expressive dysphasia lasting approximately 2 hours. Symptom onset 1 PM, prior to this he felt completely well with no recent illness. No associated fevers, chills, chest pain, shortness of breath, extremity weakness, facial droop, vertigo, lightheadedness, dizziness, change in hearing or vision. When seen in the ER his symptoms are completely resolved. He was a telemetry stroke will be given resolving symptoms no tPA was given. His care was discussed with neurology by the ER physician and he was given asp irin 324 mg. He does have a history of orthostatic sounding hypertension with lightheadedness after he bends over. He has a notable episode of syncope in December which was thought to be dehydration at the time. However patient reports having no presyncopal symptoms prior to this and unexplained weakness in all 4 extremities afterwards. He was discharged from the ER on that occasion. No vertigo. Principal Diagnosis TIA Discharge Exam Constitutional: WD/WN, vitals as above Eyes: PERRL, conjunctivae normal, anicteric sclerae ENMT: external ear and nose normal, oropharynx normal Neck: trachea midline, no thyromegaly Respiratory: normal respiratory effort, lungs clear to auscultation Cardiovascular: RRR, no murmur, no edema Gastrointestinal (Abdomen): normal bowel sounds, soft, nontender, no hepatosplenomegaly Musculoskeletal: no cyanosis or clubbing, extremities motor strength 5/5 Skin: no rashes, warm and dry Neurologic: CN's II-XI intact bilaterally, moves all extremities and awake; no focal motor deficits and not confused Speech / Cognition: normal speech Mot or/Sensory: no tremor and no pronator drift Coordination: normal [id number] test and normal [id number] test Psychiatric: A+Ox3, euthymic affect Genitourinary: no CVA tenderness Lymphatic: no cervical or axillary lymphadenopathy Discharge Data Allergies Allergy/AdvReac Type Severity Reaction Status Date / Time No Known Drug Allergies Allergy Verified 12/20/19 13:41 Consultations 12/14/19 14:59 ED Decision to Admit Stat 12/14/19 20:58 Consult Case Management - Discharge Planning Routine Consult Neurology Routine Ordered Studies 12/14/19 14:02 CT angio head w con Stat CT angio neck with con Stat CT head/brain wo con Stat 12/14/19 20:58 MR brain wo con Routine Hospital Course (1) TIA (transient ischemic attack): Symptoms now resolved. 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 use a regular dose, and not high dose, statin Control blood pressure as you are doing, aiming for a mean arterial pressure approximately 100. I can follow as an outpatient in 2-3 weeks. (2) Expressive aphasia: Symptoms now completely resolved. Treatment as above. (3) Hyperlipidemia: Notable history of this. On no medications. Start atorvastatin as above. Total Time Total Time Spent Total Time Spent (In Minutes): 32 Total Time Includes: Examination of the Patient, Discharge Planning and Medication Reconciliation Discharge Plan Discharge Items Patient Disposition: Home - Self-Care Reason For Visit: TIA, EXPRESSIVE DYSPHASIA Discharge Diagnosis: TIA Activity: Resume your previous activity Non-emergency contact: Primary Care Provider Call non-emergency contact if: you have any medication questions Follow-up/Referrals: Arsen Reyez MD [Primary Care Provider] - Diet: Heart Healthy Addtl Attending Provider Instructions: Risk Factors for Stroke: You can reduce your chances of stroke by working with your medical provider to adopt a healthy lifestyle. Some specific ways to lower your chance of stroke are: * If you are a smoker, now is the time to stop smoking cigarettes * If you are diabetic, improve the control of your blood sugars * Avoid excessive amounts of alcohol * Control high blood pressure * Lose weight if you are overweight * Be sure to lead an active lifestyle * Eat a healthy diet low in salt, cholesterol and fat You should know about other risk factors for stroke that you are unable to control. These include: * Age 55 years or older * Male gender * Certain racial groups: , or / * Family History of Stroke, Mini stroke or Heart Attack * Sickle Cell Disease Follow Up: It is important for you to keep your follow up appointments with your medical provider. Who to Call and When: Medical Emergencies: Call 911 immediately if you experience any of the following warning signs and symptoms of Stroke: * Sudden numbness or weakness of the face, arm or leg, especially on one side of the body * Sudden confusion, trouble speaking or understanding * Sudden trouble seeing in one or both eyes * Sudden trouble walking, dizziness, loss of balance or coordination * Sudden severe headache with no cause Do not delay calling 911 if you experience any warning signs or symptoms of a stroke. Delay in seeking medical attention may affect what treatments can be given to you. . follow as an outpatient in 2-3 weeks. Pending Studies at Discharge: No Stand-Alone Forms: Medications to Prevent Stroke, [facility], Smoking Cessation Medications and DC Order Prescriptions: New atorvastatin 40 mg Tablet 40 mg PO QPM Qty: 30 RF: 0 aspirin 81 mg Tablet,Delayed Release (Dr/Ec) 81 mg PO QAM Qty: 30 RF: 0 No Action No Known Home Medications RF: 0 Discharge Orders: Discharge Order (Routine); Ordered 12/15/19 Ordered By: Jabari Rios Admission Data Admit Date/Time: 12/14/19 16:49 Attending Provider: Jabari Rios Admit Provider: Severo Zuniga Primary Care Provider: Arsen Reyez Other Providers: Vivek Rodgers ; Severo Zuniga Other Interventions: Discharge Summary Assessment (RN) Last Done: 12/15/19 14:27 Coding Level of Care Code 91636 OBS Care - Discharge Diagnoses TIA (transient ischemic attack) G45.9 Expressive aphasia R47.01 Hyperlipidemia E78.5
== END 2019-12-15 16:00 | disposition home or self-care (01) ==
LOC: ED 13:39 → 2W 13:39 → SUATTDRO 16:49 → 2W 19:30

== ENCOUNTER 2020-09-15 14:22 | Observation (INO) ==
[2020-09-15] MEDS ORDERED: SODIUM CHLORIDE 0.9% 1000ML 500 ML IV ONE (14:59)
--- NOTE | 2020-09-15 14:59 | CT Scan Report ---
HEAD CT NONCONTRAST CT DOSE: 1119.21 mGycm HISTORY: Difficulty speaking. Assess for stroke. TECHNIQUE: Multiaxial CT images of the head were performed without the use of intravenous contrast. A utomated exposure control was utilized for this study. A dose lowering technique was utilized adheri ng to the principles of ALARA. Comparison: Head CT 12/14/2019. Findings: Mild mucosal thickening within the paranasal sinuses. The mastoid air cells are clear. Mode rate atrophic changes are again noted. This likely accounts for the ventricular prominence. This karel ins unchanged. Periarticular white matter hypodensity is also not significant changed and favors micr ovascular ischemic change. No mass, hematoma, midline shift, or acute infarct. Impression: No significant change compared to the prior study. No acute intracranial abnormality. ACT 112: Negative or not required by law. Electronically signed by: Seth Roman M.D. 09/15/2020 2:58 PM
[2020-09-15 15:10] LABS: Basophils # (auto) 0.07 K/uL (0-0.2); Basophils % (auto) 1.2 %; Eosinophils # (auto) 0.35 K/uL (0-0.5); Eosinophils % (auto) 6.2 %; Hematocrit (blood only) 46.3 % (42-52); Hemoglobin 16.5 g/dL (14.0-18.0); Immature Granulocytes # (auto) 0.02 K/uL (0.00-0.02); Immature Granulocytes % (auto) 0.4 %; Lymphocytes # (auto) 1.79 K/uL (1.2-3.4); Lymphocytes % (auto) 31.5 %; Mean Corpuscular Hemoglobin 34.4 pg (25-34); Mean Corpuscular Hgb Conc 35.6 g/dL (32-36); Mean Corpuscular Volume 96.7 fL (80-100); Mean Platelet Volume 9.5 fL (7.4-10.4); Monocytes # (auto) 0.47 K/uL (0.11-0.59); Monocytes % (auto) 8.3 %; Neutrophils # (auto) 2.99 K/uL (1.4-6.5); Neutrophils % (auto) 52.4 %; Platelet Count 206 K/uL (130-400); RDW Coefficient of Variation 12.6 % (11.5-14.5); RDW Standard Deviation 44.5 fL (36.4-46.3); Red Blood Count 4.79 M/uL (4.7-6.1); White Blood Count 5.69 K/uL (4.8-10.8)
--- NOTE | 2020-09-15 15:12 | Emergency Department Note ---
Impression & Plan Speech disturbance, Stroke-like symptoms, History of TIA (transient ischemic attack), Abnormal CT of brain ED Provider Note NAME: BECCA NUNEZ AGE: 80 SEX: M : 1940 ARRIVES VIA: Walk-In INFORMANT: [Patient] ED PROVIDER(S): [Martínez Block MD] Patient first seen by me at 1450 CHIEF COMPLAINT: Stroke HISTORY OF PRESENT ILLNESS: The patient is a 80-year-old male who believes that around an hour ago, 2 PM, he began having difficulty getting his words out. He knew what he wanted to say but could not speak properly. No slurring. No headache. No chest pain or shortness of breath. No arm or leg weakness. Patient has had a TIA before. His son brought him here. He did take an aspirin before arrival. He states that his symptoms seemed to last about 20 minutes and now he feels back to baseline. He states that he no longer is having difficulty with finding words or speaking. The patient states that he was quite hot at the time his symptoms began, he was outside although, he was in the shade. The patient has recently been in baseline health. He states that he is taking his medications as prescribed. No cough, cold or congestion. REVIEW OF SYSTEMS: See HPI for pertinent positives and negatives. A total of ten systems were reviewed and were otherwise negative. PMHx/PSHx: See Below SOCIAL HISTORY: See Below. PHYSICAL EXAM: GENERAL: Patient is in no acute distress. HEENT: No acute trauma, normocephalic atraumatic, mucous membranes moist, no nasal congestion, no scleral icterus. NECK: No stridor, no adenopathy, no meningismus, trachea is midline. LUNGS: Clear to auscultation bilaterally, no wheeze, no rhonchi, breath sounds equal. HEART: Without murmurs gallops or rubs, regular rate and rhythm. ABDOMEN: Soft, nontender, bowel sounds positive, no hernias, no peritonitis. EXTREMITIES: No cyanosis or edema, full range of motion of all the joints without pain or difficulty, no signs for acute trauma. NEUROLOGIC: Oriented x 3, no acute motor or sensory deficits, no focal weakness. No speech slur or facial droop. No extremity drift or cerebellar deficit. SKIN: No rash, no jaundice, no diaphoresis. DIFFERENTIAL DIAGNOSIS: Infection, dehydration, metabolic abnormality, hypo/hyperglycemia, electrolyte disturbance, anemia, hypoxia, cardiac sources, intracerebral event, toxicologic issues, stroke, TIA, as well as other pathologies. EMERGENCY DEPARTMENT COURSE/PROCEDURES: ECG: Indication was possible stroke. The ECG shows a normal sinus rhythm with a rate of 76. There is no ST elevation, no PVCs. The QTc is 454. Continuous Cardiac Monitoring: An order was placed for continuous cardiac monitoring. The monitor shows a rate of 89 with normal sinus rhythm. Critical Care Note: I have personally spent 47 minutes of critical care time in the direct management of this patient. This includes bedside care, interpretation of diagnostic studies, and testing, discussion with consultants, patient, and family members, and other required patient management activities. This 47 minutes is in excess of all separately billable procedures. MEDICAL DECISION MAKING: There is no leukocytosis or concerning anemia. There is a normal platelet count. No coagulopathy. No significant electrolyte abnormality or kidney failure. Bilirubin was mildly elevated, the remaining liver enzymes were unremarkable. ECG shows a sinus rhythm, no acute ischemia. Cardiac enzyme testing x1 is not consistent with acute cardiac injury. Urinalysis does not show hematuria or infection. Chest x-ray does not show CHF or pneumonia. Brain CT shows atrophy, no acute bleed or mass-effect. Brain and neck CT angiography demonstrates narrowing of some of the intracranial vasculature on the right. The neck vasculature was very patent. There was no occlusion to any vessel. On my exam, the patient had no focal neurologic findings. He had normal speech and normal response to questioning. The patient was made a stroke alert in triage. He was rapidly and aggressively managed. I did speak with the stroke neurologist from [place]. No TPA is indicated as the patient's symptoms have resolved. The stroke neurologist did not feel the need to do a telestroke evaluation as the patient was asymptomatic by the time of my phone call. The patient was given a 500 cc saline bolus, he has been resting comfortably. No return of symptoms. I spoke to the patient and case management. The on-call hospitalist has been consulted. Admission and further work-up is warranted. Certainly, TIA seems a very likely cause for his presentation. Past Med/Surg History Medical History BPH (benign prostatic hyperplasia) Expressive aphasia H/O Mohs micrographic surgery for skin cancer Hyperlipidemia Osteoarthritis TIA (transient ischemic attack) Surgical History H/O shoulder surgery bilat History of arthroscopy of knee left History of colonoscopy Hx of surgical procedure removal of tongue growth with lazer> 5 yrs ago S/P trigger finger release left Family History Mother , age 83 Diabetes Father , age 83 of uncertain causes. No problems noted. Other No family history of adverse response to anesthesia Denies family history of Ovarian cancer Myocardial infarction Breast cancer Colorectal cancer Social History Smoking Status: Never smoker Second Hand Exposure: No; Hx Alcohol Use: Yes Alcohol type: beer Alcohol Intake Frequency Comment: Two beers each evening. He has done this for years. 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, [employer] Feels Safe at Home: Yes Childhood Exposure to Second-Hand Smoke: Yes Dental Care, Regularly: Yes Physical Activity Frequency: Daily Seatbelt Use: always Sunscreen Use: No Assistive Devices: Glasses Allergies Allergies Allergy/AdvReac Type Severity Reaction Status Date / Time No Known Drug Allergies Allergy Verified 09/15/20 15:57 Home Meds Home Medications Medication Instructions Recorded Confirmed acetaminophen [Tylenol Extra 500 mg PO Q6H PRN 09/15/20 09/15/20 Strength] Previous Rx's Medication Instructions Recorded aspirin 81 mg tablet,delayed 81 mg PO QAM #90 tab 02/12/20 release atorvastatin 40 mg tablet 40 mg PO QPM #90 tab 02/12/20 Results & Data (ED) Vital Signs Vital Signs - 24 hr 09/15/20 14:41 09/15/20 15:05 09/15/20 15:23 Temperature 36.5 C Temperature Source Oral Pulse Rate 89 83 69 Pulse Rate from SpO2 Sensor 83 Pulse Rhythm Regular Regular Pulse Strength Normal Respiratory Rate 20 23 20 Respiratory Effort / Characteristics Non-Labored Spontaneous Respiratory Depth Normal Respiratory Pattern Regular Blood Pressure 157/87 H 153/88 H Blood Pressure Mean 110 109 Blood Pressure Position Sitting Pulse Oximetry 98 95 98 Oxygen Delivery Method Room Air Room Air Sepsis Recent Fever Within 48 Hours No Sepsis New/Unexplained Change in Mental Status No Sepsis Action Taken by Nursing No Action Required 09/15/20 15:50 09/15/20 16:00 09/15/20 16:15 Temperature Temperature Source Pulse Rate 82 89 86 Pulse Rate from SpO2 Sensor 83 86 Pulse Rhythm Pulse Strength Respiratory Rate 20 19 27 H Respiratory Effort / Characteristics Respiratory Depth Respiratory Pattern Blood Pressure 141/79 H Blood Pressure Mean 99 Blood Pressure Position Pulse Oximetry 93 96 Oxygen Delivery Method Sepsis Recent Fever Within 48 Hours Sepsis New/Unexplained Change in Mental Status Sepsis Action Taken by Retirement Medications Current Medication List: was personally reviewed by me Laboratory Data Attestation: I reviewed the patient's lab results. Result diagrams: 09/15/20 14:59 09/15/20 14:59 Lab Results 09/15/20 09/15/20 09/15/20 Range/Units 14:56 14:56 14:59 WBC 5.69 (4.8-10.8) K/uL RBC 4.79 (4.7-6.1) M/uL Hgb 16.5 (14.0-18.0) g/dL Hct 46.3 (42-52) % MCV 96.7 (80-100) fL MCH 34.4 H (25-34) pg MCHC 35.6 (32-36) g/dL RDW Std Deviation 44.5 (36.4-46.3) fL RDW Coeff of Elo 12.6 (11.5-14.5) % Plt Count 206 (130-400) K/uL MPV 9.5 (7.4-10.4) fL Immature Gran % (Auto) 0.4 % Neut % (Auto) 52.4 % Lymph % (Auto) 31.5 % [place] % (Auto) 8.3 % Eos % (Auto) 6.2 % Baso % (Auto) 1.2 % Neut # (Auto) 2.99 (1.4-6.5) K/uL Lymph # (Auto) 1.79 (1.2-3.4) K/uL [place] # (Auto) 0.47 (0.11-0.59) K/uL Eos # (Auto) 0.35 (0-0.5) K/uL Baso # (Auto) 0.07 (0-0.2) K/uL Immature Gran # (Auto) 0.02 (0.00-0.02) K/uL PT 11.1 (9.0-12.0) Seconds INR 1.1 (0.9-1.1) APTT 27.1 (21.0-31.0) Seconds PTT Ratio 1.0 Sodium (136-145) mmol/L Potassium (3.5-5.1) mmol/L Chloride (98-107) mmol/L Carbon Dioxide (21-32) mmol/L Anion Gap (3-11) BUN (7-18) mg/dl Creatinine (0.6-1.4) mg/dl Est Cr Clr Drug Dosing ml/min Est GFR ( Amer) ml/min Est GFR (Non-Af Amer) ml/min BUN/Creatinine Ratio (10-20) Glucose (70-99) mg/dl POC Glucose (70-99) mg/dl Calcium (8.5-10.1) mg/dl Magnesium (1.8-2.4) mg/dl Total Bilirubin (0.2-1) mg/dl AST (15-37) U/L ALT (12-78) U/L Alkaline Phosphatase (45-117) U/L Troponin I (0-0.045) ng/ml Total Protein (6.4-8.2) gm/dl Albumin (3.4-5.0) gm/dl Globulin (2.5-4.0) gm/dl Albumin/Globulin Ratio (0.9-2) Urine Color Urine Appearance (Clear) Urine pH (4.5-7.5) Ur Specific [place] (1.000-1.030) Urine Protein (Negative) Urine Glucose (UA) (Negative) Urine Ketones (Negative) Urine Blood (Negative) Urine Nitrite (Negative) Urine Bilirubin (Negative) Urine Urobilinogen (Negative) Ur Leukocyte Esterase (Negative) Urine WBC (Auto) (0-5) /hpf Urine RBC (Auto) (0-4) /hpf U Hyaline Cast (Auto) (0-5) /lpf U Epithel Cells (Auto) (0-5) /lpf Urine Bacteria (Auto) (Negative) Blood Type A Positive Antibody Screen NEGATIVE 09/15/20 09/15/20 09/15/20 Range/Units 14:59 15:05 15:23 WBC (4.8-10.8) K/uL RBC (4.7-6.1) M/uL Hgb (14.0-18.0) g/dL Hct (42-52) % MCV (80-100) fL MCH (25-34) pg MCHC (32-36) g/dL RDW Std Deviation (36.4-46.3) fL RDW Coeff of Elo (11.5-14.5) % Plt Count (130-400) K/uL MPV (7.4-10.4) fL Immature Gran % (Auto) % Neut % (Auto) % Lymph % (Auto) % [place] % (Auto) % Eos % (Auto) % Baso % (Auto) % Neut # (Auto) (1.4-6.5) K/uL Lymph # (Auto) (1.2-3.4) K/uL [place] # (Auto) (0.11-0.59) K/uL Eos # (Auto) (0-0.5) K/uL Baso # (Auto) (0-0.2) K/uL Immature Gran # (Auto) (0.00-0.02) K/uL PT (9.0-12.0) Seconds INR (0.9-1.1) APTT (21.0-31.0) Seconds PTT Ratio Sodium 138 (136-145) mmol/L Potassium 3.9 (3.5-5.1) mmol/L Chloride 105 (98-107) mmol/L Carbon Dioxide 26 (21-32) mmol/L Anion Gap 7.0 (3-11) BUN 16 (7-18) mg/dl Creatinine 1.23 (0.6-1.4) mg/dl Est Cr Clr Drug Dosing 51.5 ml/min Est GFR ( Amer) 64.3 ml/min Est GFR (Non-Af Amer) 55.5 ml/min BUN/Creatinine Ratio 12.7 (10-20) Glucose 122 H (70-99) mg/dl POC Glucose 119 H (70-99) mg/dl Calcium 9.2 (8.5-10.1) mg/dl Magnesium 2.3 (1.8-2.4) mg/dl Total Bilirubin 1.8 H (0.2-1) mg/dl AST 18 (15-37) U/L ALT 33 (12-78) U/L Alkaline Phosphatase 68 (45-117) U/L Troponin I < 0.015 (0-0.045) ng/ml Total Protein 7.6 (6.4-8.2) gm/dl Albumin 4.1 (3.4-5.0) gm/dl Globulin 3.5 (2.5-4.0) gm/dl Albumin/Globulin Ratio 1.2 (0.9-2) Urine Color Yellow Urine Appearance Cloudy A (Clear) Urine pH 7.0 (4.5-7.5) Ur Specific [place] 1.012 (1.000-1.030) Urine Protein Negative (Negative) Urine Glucose (UA) Negative (Negative) Urine Ketones Negative (Negative) Urine Blood Negative (Negative) Urine Nitrite Negative (Negative) Urine Bilirubin Negative (Negative) Urine Urobilinogen Negative (Negative) Ur Leukocyte Esterase Negative (Negative) Urine WBC (Auto) 1-5 (0-5) /hpf Urine RBC (Auto) 0-4 (0-4) /hpf U Hyaline Cast (Auto) 0 (0-5) /lpf U Epithel Cells (Auto) 0-5 (0-5) /lpf Urine Bacteria (Auto) Negative (Negative) Blood Type Antibody Screen Administered Medications Discontinued Medications Sodium Chloride (Nss 1000ml) 500 mls @ 999 mls/hr IV .Q31M ONE Stop: 09/15/20 15:29 Last Admin: 09/15/20 15:25 Dose: 999 mls/hr Documented by: [id number] Ioversol (Optiray 350 500ml) 120 ml IV ONCE ONE Stop: 09/15/20 15:41 Last Admin: 09/15/20 15:40 Dose: 120 ml Documented by: [id number] Imaging Data Radiologist's Impression: Chest X-Ray 09/15/20 14:47 XR chest 1V portable HISTORY: Difficulty speaking. Stroke symptoms. COMPARISON: Chest 12/25/2018. FINDINGS: Cardiac silhouette is top normal in size. No focal lung consolidations to suggest pneumonia. No evidence for pulmonary edema. No pleural effusions. No pneumothorax. IMPRESSION: No acute process. ACT 112: Negative or not required by law. Electronically signed by: Seth Roman M.D. 09/15/2020 3:[address] 09/15/20 14:[address] DOSE: 1119.21 mGycm HISTORY: Difficulty speaking. Assess for stroke. TECHNIQUE: Multiaxial CT images of the head were performed without the use of in travenous contrast. Automated exposure control was utilized for this study. A dose lowering technique was utilized adhering to the principles of ALARA. Comparison: Head CT 12/14/2019. Findings: Mild mucosal thickening within the paranasal sinuses. The mastoid air cells are clear. Moderate atrophic changes are again noted. This likely accounts for the ventricular prominence. This remains unchanged. Periarticular white matter hypodensity is also not significant changed and favors microvascular ischemic change. No mass, hematoma, midline shift, or acute infarct. Impression: No significant change compared to the prior study. No acute intracranial abnormality. ACT 112: Negative or not required by law. Electronically signed by: Seth Roman M.D. 09/15/2020 2:58 PM Head CTA 09/15/20 14:59 HEAD & NECK CTA HISTORY: Slurred speech. Stroke Like Symptoms TECHNIQUE: Multiaxial CT images of the head were performed the intravenous administration of contrast to evaluate the major cerebral vessels. Multiaxial CT images of the neck were also performed following the intravenous administration of contrast to evaluate the major cervical vessels. Maximum intensity projection images were also obtained. A dose lowering technique was utilized adhering to the principles of ALARA. COMPARISON: None. FINDINGS: There is no mass, hematoma, midline shift, or acute infarct. Mild calcified plaque within the bilateral carotid siphons without significant stenosis. Focal high-grade stenosis at the distal right vertebral artery on image 59. The distal left vertebral artery and basilar artery are patent. The left ESTATE [employer] TR[employer] TAX PRINCIPAL is fed primarily through the left posterior communicating artery consistent with a normal variant. Moderate to severe focal stenosis within the right P1 segment. The left ESTATE [employer] TAX [employer]INCIPAL is widely patent. 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 The bilateral ACAs are fed through the right side. The bilateral ACAs and left MCA are widely patent. Focal high-grade stenosis at the takeoff of the superior division of the right M2 segment best seen on image 121. No occlusion or aneurysm identified within the right MCA. The major dural venous sinuses are patent. The aortic arch and proximal great vessels are widely patent. There is no significant stenosis, occlusion, or dissection identified within the bilateral common carotid, internal carotid, or vertebral arteries. Mild calcified plaque within the bilateral carotid bifurcations. IMPRESSION: 1. Focal areas of high-grade stenosis seen within the right MCA, right ESTATE [employer] TR[employer] TAX [employer]INCIPAL, and right distal vertebral artery as described above. However, no evidence for occlusion within the cerebral arteries. 2. No significant stenosis, occlusion, or dissection identified within the carotid or vertebral arteries. ACT 112: Negative or not required by law. Electronically signed by: Seth Roman M.D. 09/15/2020 3:57 PM Neck CTA 09/15/20 14:59 HEAD & NECK CTA HISTORY: Slurred speech. Stroke Like Symptoms TECHNIQUE: Multiaxial CT images of the head were performed the intravenous administration of contrast to evaluate the major cerebral vessels. Multiaxial CT images of the neck were also performed following the intravenous administration of contrast to evaluate the major cervical vessels. Maximum intensity projection images were also obtained. A dose lowering technique was utilized adhering to the principles of ALARA. COMPARISON: None. FINDINGS: There is no mass, hematoma, midline shift, or acute infarct. Mild calcified plaque within the bilateral carotid siphons without significant stenosis. Focal high-grade stenosis at the distal right vertebral artery on image 59. The distal left vertebral artery and basilar artery are patent. The left ESTATE [employer] TR[employer] TAX [employer]INCIPAL is fed primarily through the left posterior communicating artery consistent with a normal variant. Moderate to severe focal stenosis within the right P1 segment. The left ESTATE [employer]AX [employer]INCIPAL is widely patent. 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 The bilateral ACAs are fed through the right side. The bilateral ACAs and left MCA are widely patent. Focal high-grade stenosis at the takeoff of the superior division of the right M2 segment best seen on image 121. No occlusion or aneurysm identified within the right MCA. The major dural venous sinuses are patent. The aortic arch and proximal great vessels are widely patent. There is no significant stenosis, occlusion, or dissection identified within the bilateral common carotid, internal carotid, or vertebral arteries. Mild calcified plaque within the bilateral carotid bifurcations. IMPRESSION: 1. Focal areas of high-grade stenosis seen within the right MCA, right ESTATE [employer] TR[employer]AX [employer]IPAL, and right distal vertebral artery as described above. However, no evidence for occlusion within the cerebral arteries. 2. No significant stenosis, occlusion, or dissection identified within the carotid or vertebral arteries. ACT 112: Negative or not required by law. Electronically signed by: Seth Roman M.D. 09/15/2020 3:57 PM Discharge Plan Visit Data Chief Complaint: Stroke/CVA Symptoms Stated Complaint: HAVING PROBLEMS REMEMBERING - THINKS TIA ED Provider: Martínez Block Discharge Problem: Speech disturbance, Stroke-like symptoms, History of TIA (transient ischemic attack), Abnormal CT of brain Patient Disposition: Admitted As Inpatient Condition: Fair Forms Stand Alone Forms: [facility] [employer] Prescriptions Prescriptions: No Action aspirin 81 mg tablet,delayed release (DR/EC) 81 mg PO QAM Qty: 90 RF: 3 atorvastatin 40 mg tablet 40 mg PO QPM Qty: 90 RF: 3 acetaminophen [Tylenol Extra Strength] 500 mg Tablet 500 mg PO Q6H PRN (Reason: pain) RF: 0 Referrals Referrals: Arsen Reyez MD [Primary Care Provider] - Discharge Problem: Speech disturbance Qualifiers: Speech disturbance type: dysarthria Qualified Code(s): R47.1 - Dysarthria and anarthria
[2020-09-15 15:21] LABS: INR 1.1 (0.9-1.1); Partial Thromboplastin Time 27.1 Seconds (21.0-31.0); Prothrombin Time 11.1 Seconds (9.0-12.0)
[2020-09-15 15:28] LABS: Alanine Aminotransferase 33 U/L (12-78); Albumin Level 4.1 gm/dl (3.4-5.0); Aspartate Aminotransferase 18 U/L (15-37); BUN Creatinine Ratio 12.7 (10-20); Blood Urea Nitrogen 16 mg/dl (7-18); Calcium 9.2 mg/dl (8.5-10.1); Carbon Dioxide 26 mmol/L (21-32); Chloride 105 mmol/L (98-107); Creatinine Clr Calc Pharmacy 51.5 ml/min; Est GFR (African American) 64.3 ml/min; Est GFR (Non-African American) 55.5 ml/min; Glucose 122 mg/dl (70-99); Magnesium 2.3 mg/dl (1.8-2.4); Potassium 3.9 mmol/L (3.5-5.1); Sodium 138 mmol/L (136-145)
[2020-09-15 15:33] LABS: Albumin Globulin Ratio 1.2 (0.9-2); Alkaline Phosphatase 68 U/L (45-117); Bilirubin,Total 1.8 mg/dl (0.2-1); Globulin 3.5 gm/dl (2.5-4.0); Total Protein 7.6 gm/dl (6.4-8.2); Troponin I < 0.015 ng/ml (0-0.045)
[2020-09-15] MEDS ORDERED: OPTIRAY 350 500ml IV ONE (15:40)
[2020-09-15 15:43] LABS: Appearance Urine Cloudy (Clear); Bacteria Urine Automated Negative (Negative); Bilirubin Urine Negative (Negative); Blood Urine Negative (Negative); Cast Urine Automated 0 /lpf (0-5); Color Urine Yellow; Epithelial Cell Urine Auto 0-5 /lpf (0-5); Glucose Urine UA Negative (Negative); Ketones Urine Negative (Negative); Leukocyte Esterase Urine Negative (Negative); Nitrite Urine Negative (Negative); Protein Urine Negative (Negative); RBC Urine Automated 0-4 /hpf (0-4); Specific Gravity Urine 1.012 (1.000-1.030); Urobilinogen Urine Negative (Negative)
--- NOTE | 2020-09-15 15:44 | XRay Report ---
XR chest 1V portable HISTORY: Difficulty speaking. Stroke symptoms. COMPARISON: Chest 12/25/2018. FINDINGS: Cardiac silhouette is top normal in size. No focal lung consolidations to suggest pneumonia . No evidence for pulmonary edema. No pleural effusions. No pneumothorax. IMPRESSION: No acute process. ACT 112: Negative or not required by law. Electronically signed by: Seth Roman M.D. 09/15/2020 3:43 PM
--- NOTE | 2020-09-15 15:58 | CT Scan Report ---
HEAD & NECK CTA HISTORY: Slurred speech. Stroke Like Symptoms TECHNIQUE: Multiaxial CT images of the head were performed the intravenous administration of contrast to evaluate the major cerebral vessels. Multiaxial CT images of the neck were also performed followi ng the intravenous administration of contrast to evaluate the major cervical vessels. Maximum intensi ty projection images were also obtained. A dose lowering technique was utilized adhering to the princ iplloan of JESUS MANUEL. COMPARISON: None. FINDINGS: There is no mass, hematoma, midline shift, or acute infarct. Mild calcified plaque within the bilater al carotid siphons without significant stenosis. Focal high-grade stenosis at the distal right verteb ral artery on image 59. The distal left vertebral artery and basilar artery are patent. The left RESIDENTIAL INSTRUCTOR is fed primarily through the left posterior communicating artery consistent with a normal variant. Mo derate to severe focal stenosis within the right P1 segment. The left RESIDENTIAL INSTRUCTOR is widely patent. 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 The bilateral ACAs are fed through the right side. The bilateral ACAs and left MCA are widely patent. Focal high-grade stenosis at the takeoff of the s uperior division of the right M2 segment best seen on image 121. No occlusion or aneurysm identified within the right MCA. The major dural venous sinuses are patent. The aortic arch and proximal great vessels are widely patent. There is no significant stenosis, occ lusion, or dissection identified within the bilateral common carotid, internal carotid, or vertebral arteries. Mild calcified plaque within the bilateral carotid bifurcations. IMPRESSION: 1. Focal areas of high-grade stenosis seen within the right MCA, right RESIDENTIAL INSTRUCTOR, and right distal vertebra l artery as described above. However, no evidence for occlusion within the cerebral arteries. 2. No significant stenosis, occlusion, or dissection identified within the carotid or vertebral arter ies. ACT 112: Negative or not required by law. Electronically signed by: Seth Roman M.D. 09/15/2020 3:57 PM
--- NOTE | 2020-09-15 15:58 | CT Scan Report ---
HEAD & NECK CTA HISTORY: Slurred speech. Stroke Like Symptoms TECHNIQUE: Multiaxial CT images of the head were performed the intravenous administration of contrast to evaluate the major cerebral vessels. Multiaxial CT images of the neck were also performed followi ng the intravenous administration of contrast to evaluate the major cervical vessels. Maximum intensi ty projection images were also obtained. A dose lowering technique was utilized adhering to the princ iplloan of JESUS MANUEL. COMPARISON: None. FINDINGS: There is no mass, hematoma, midline shift, or acute infarct. Mild calcified plaque within the bilater al carotid siphons without significant stenosis. Focal high-grade stenosis at the distal right verteb ral artery on image 59. The distal left vertebral artery and basilar artery are patent. The left DIRECTOR CHANNEL is fed primarily through the left posterior communicating artery consistent with a normal variant. Mo derate to severe focal stenosis within the right P1 segment. The left DIRECTOR CHANNEL is widely patent. 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 The bilateral ACAs are fed through the right side. The bilateral ACAs and left MCA are widely patent. Focal high-grade stenosis at the takeoff of the s uperior division of the right M2 segment best seen on image 121. No occlusion or aneurysm identified within the right MCA. The major dural venous sinuses are patent. The aortic arch and proximal great vessels are widely patent. There is no significant stenosis, occ lusion, or dissection identified within the bilateral common carotid, internal carotid, or vertebral arteries. Mild calcified plaque within the bilateral carotid bifurcations. IMPRESSION: 1. Focal areas of high-grade stenosis seen within the right MCA, right DIRECTOR CHANNEL, and right distal vertebra l artery as described above. However, no evidence for occlusion within the cerebral arteries. 2. No significant stenosis, occlusion, or dissection identified within the carotid or vertebral arter ies. ACT 112: Negative or not required by law. Electronically signed by: Seth Roman M.D. 09/15/2020 3:57 PM
--- NOTE | 2020-09-15 16:28 | History & Physical Report ---
Date of Service September 15, 2020 Assessment & Plan (1) Expressive aphasia: Patient has expressive aphasia concerning for TIA. Imaging of his brain angiographically does show concern for stenosis on the right side however speech center the Broca's area is on the left side, home medicines include aspirin 81 atorvastatin 40 likely will increase aspirin 325 and add plavix, l consult neurology for further recommendations. We will also perform MRI of the brain. lipids in am and echo (2) Hypertension: Patient is mildly hypertensive here we will allow permissive hypertension no medications use at this time (3) Hyperlipidemia: Hyperlipidemia history with atorvastatin 40 will discuss with neurology after we get lipid panel whether the pushes to 80 (4) Benign prostatic hyperplasia with urinary obstruction: Patient is without lower urinary tract symptoms at this point time History of Present Illness Primary Care Provider: Arsen Reyez MD 80-year-old male who believes that around an hour prior to presentation, 2 PM, he began having difficulty getting his words out. He knew what he wanted to say but words were fragmented. No slurring. No headache. No chest pain or shortness of breath. No focal arm or leg weakness. Patient has had a TIA before approximately one year ago. His son brought him here in a private vehicle. He states that his symptoms seemed to last about 20 minutes and now he feels back to baseline. He states that he no longer is having difficulty with finding words or speaking. The patient states that he was quite hot at the time his symptoms began, he was outside although, he was in the shade. The patient has recently been in baseline health. He states that he is taking his medications as prescribed. No cough, cold or congestion. In the emergency department the attending spoke with the stroke attending masonry instructor he felt no stroke work-up would be required. Patient had a CT scan of his head which showed no significant change compared to prior study although he has moderate atrophic changes and ventricular prominence with a ventricular white matter hypodensities consider microvascular changes seen. CT angiogram of the head and neck show high-grade stenosis within the right MCA right GL[employer] INSPECTOR and right distal vertebral arteries as described however no evidence of occlusion within the cerebral arteries no significant stenosis occlusion or dissection identified within the carotid or vertebral arteries Allergies Allergy/AdvReac Type Severity Reaction Status Date / Time No Known Drug Allergies Allergy Verified 09/15/20 15:57 Home Medications Medication Instructions Recorded Confirmed Type aspirin 81 mg tablet,delayed 81 mg PO QAM #90 tab 10/19/20 05/23/21 Rx release atorvastatin 40 mg tablet 40 mg PO QPM #90 tab 02/12/20 09/15/20 Rx acetaminophen [Tylenol Extra 500 mg PO Q6H PRN 09/15/20 09/15/20 History Strength] Past Med/Surg History Medical History (Updated 09/15/20 @ 16:25 by Forrest Bennett MD) BPH (benign prostatic hyperplasia) Expressive aphasia H/O Mohs micrographic surgery for skin cancer Hyperlipidemia Osteoarthritis TIA (transient ischemic attack) Surgical History H/O shoulder surgery bilat History of arthroscopy of knee left History of colonoscopy Hx of surgical procedure removal of tongue growth with lazer> 5 yrs ago S/P trigger finger release left Family History Mother , age 83 Diabetes Father , age 83 of uncertain causes. No problems noted. Other No family history of adverse response to anesthesia Denies family history of Ovarian cancer Myocardial infarction Breast cancer Colorectal cancer Social History Smoking Status: Never smoker Second Hand Exposure: No; Hx Alcohol Use: Yes Alcohol type: beer Alcohol Intake Frequency Comment: Two beers each evening. He has done this for years. 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, [employer] Feels Safe at Home: Yes Childhood Exposure to Second-Hand Smoke: Yes Dental Care, Regularly: Yes Physical Activity Frequency: Daily Seatbelt Use: always Sunscreen Use: No Assistive Devices: Glasses Review of Systems Review of Systems: Mild distress and fatigue no headache, blurry or double vision no speech or swallowing issues no chest pain, pressure or palpitations no shortness of breath, cough or wheezes no abdominal pain, nausea or vomiting, diarrhea or constipation no dysuria, hematuria or frequency no focal joint pain or swelling no back pain, CVA tenderness or radicular pain no bruising, bleeding or rashes no focal signs of weakness or numbness or altered sensation no complaints of anxiety or depression.. Physical Exam Physical Exam: The patient appeared well nourished and normally developed. Vital signs as documented. Head exam is normocephalic atraumatic Neck is without JVD, thyromegaly, or carotid bruits. Lungs are clear to auscultation, no focal loss of breath sounds Cardiac exam, Rhythm is regular.. No murmurs, rubs or gallops. Abdominal exam reveals normal bowel sounds, soft non tender, no masses Extremities are nonedematous and both pedal pulses are present Neurologic exam is alert and oriented, no focal loss of strength or sensation Skin is without bruises or rashes Psychologically is without concerns for anxiety or depression Results & Data Results & [facility] ([facility]) Vital Signs (Past 12 Hours) Vital Signs Temp Pulse Resp BP Pulse Ox 09/15/20 16:15 86 27 H 96 09/15/20 16:00 89 19 09/15/20 15:50 82 20 141/79 H 93 09/15/20 15:23 69 20 98 09/15/20 15:05 83 23 153/88 H 95 09/15/20 14:41 97.7 F 89 20 157/87 H 98 Chest X-Ray 09/15/20 14:47 XR chest 1V portable HISTORY: Difficulty speaking. Stroke symptoms. COMPARISON: Chest 12/25/2018. FINDINGS: Cardiac silhouette is top normal in size. No focal lung consolidations to suggest pneumonia. No evidence for pulmonary edema. No pleural effusions. No pneumothorax. IMPRESSION: No acute process. ACT 112: Negative or not required by law. Electronically signed by: Seth Roman M.D. 09/15/2020 3:[address] 09/15/20 14:[address] DOSE: 1119.21 mGycm HISTORY: Difficulty speaking. Assess for stroke. TECHNIQUE: Multiaxial CT images of the head were performed without the use of intravenous contrast. Automated exposure control was utilized for this study. A dose lowering technique was utilized adhering to the principles of ALARA. Comparison: Head CT 12/14/2019. Findings: Mild mucosal thickening within the paranasal sinuses. The mastoid air cells are clear. Moderate atrophic changes are again noted. This likely accounts for the ventricular prominence. This remains unchanged. Periarticular white matter hypodensity is also not significant changed and favors microvascular ischemic change. No mass, hematoma, midline shift, or acute infarct. Impression: No significant change compared to the prior study. No acute intracranial abnormality. ACT 112: Negative or not required by law. Electronically signed by: Seth Roman M.D. 09/15/2020 2:58 PM Head CTA 09/15/20 14:59 HEAD & NECK CTA HISTORY: Slurred speech. Stroke Like Symptoms TECHNIQUE: Multiaxial CT images of the head were performed the intravenous administration of contrast to evaluate the major cerebral vessels. Multiaxial CT images of the neck were also performed following the intravenous administration of contrast to evaluate the major cervical vessels. Maximum intensity projection images were also obtained. A dose lowering technique was utilized adhering to the principles of ALARA. COMPARISON: None. FINDINGS: There is no mass, hematoma, midline shift, or acute infarct. Mild calcified plaque within the bilateral carotid siphons without significant stenosis. Focal high-grade stenosis at the distal right vertebral artery on image 59. The distal left vertebral artery and basilar artery are patent. The left [employer]PECTOR is fed primarily through the left posterior communicating artery consistent with a normal variant. Moderate to severe focal stenosis within the right P1 segment. The left [employer]PECTOR is widely patent. 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 The bilateral ACAs are fed through the right side. The bilateral ACAs and left MCA are widely patent. Focal high-grade stenosis at the takeoff of the superior division of the right M2 segment best seen on image 121. No occlusion or aneurysm identified within the right MCA. The major dural venous sinuses are patent. The aortic arch and proximal great vessels are widely patent. There is no significant stenosis, occlusion, or dissection identified within the bilateral common carotid, internal carotid, or vertebral arteries. Mild calcified plaque within the bilateral carotid bifurcations. IMPRESSION: 1. Focal areas of high-grade stenosis seen within the right MCA, right [employer], and right distal vertebral artery as described above. However, no evidence for occlusion within the cerebral arteries. 2. No significant stenosis, occlusion, or dissection identified within the carotid or vertebral arteries. Electronically signed by: Seth Roman M.D. 09/15/2020 3:57 PM Neck CTA 09/15/20 14:59 HEAD & NECK CTA HISTORY: Slurred speech. Stroke Like Symptoms TECHNIQUE: Multiaxial CT images of the head were performed the intravenous administration of contrast to evaluate the major cerebral vessels. Multiaxial CT images of the neck were also performed following the intravenous administration of contrast to evaluate the major cervical vessels. Maximum intensity projection images were also obtained. A dose lowering technique was utilized adhering to the principles of ALARA. COMPARISON: None. FINDINGS: There is no mass, hematoma, midline shift, or acute infarct. Mild calcified plaque within the bilateral carotid siphons without significant stenosis. Focal high-grade stenosis at the distal right vertebral artery on image 59. The distal left vertebral artery and basilar artery are patent. The left [employer]OR is fed primarily through the left posterior communicating artery consistent with a normal variant. Moderate to severe focal stenosis within the right P1 segment. The left [employer]OR is widely patent. 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 The bilateral ACAs are fed through the right side. The bilateral ACAs and left MCA are widely patent. Focal high-grade stenosis at the takeoff of the superior division of the right M2 segment best seen on image 121. No occlusion or aneurysm identified within the right MCA. The major dural venous sinuses are patent. The aortic arch and proximal great vessels are widely patent. There is no significant stenosis, occlusion, or dissection identified within the bilateral common carotid, internal carotid, or vertebral arteries. Mild calcified plaque within the bilateral carotid bifurcations. IMPRESSION: 1. Focal areas of high-grade stenosis seen within the right MCA, right [employer]OR, and right distal vertebral artery as described above. However, no evidence for occlusion within the cerebral arteries. 2. No significant stenosis, occlusion, or dissection identified within the carotid or vertebral arteries. Electronically signed by: Seth Roman M.D. 09/15/2020 3:57 PM EKGs 09/15/2020 shows sinus rhythm with sinus arrhythmia no acute ST or T wave nadir chambers PG Care Time/CCT Total # of Minutes Spent Total Time Spent with Patient: Total time spent is greater than 50% in coordination of care (as documented) at patient's floor/unit and/or counseling patient: Coding Level of Care Code 90507 Initial Inpt Care Lvl 3 Diagnoses Expressive aphasia R47.01 Hypertension I10 Hyperlipidemia E78.5 Benign prostatic hyperplasia with urinary obstruction N40.1; N13.8
[2020-09-15] MEDS ORDERED: ALUMINUM/MAGNESIUM SUSP 30 ML UDC PO PRN (19:39)
[2020-09-15] MEDS ORDERED: ACETAMINOPHEN 325 MG TAB PO PRN (19:39)
[2020-09-15] MEDS ORDERED: ACETAMINOPHEN HOME PACK 500 MG TABLET PO PRN (19:39)
[2020-09-15] MEDS ORDERED: PHARMACIST DISCHARGE MED REC CONSULT PRN (19:39)
[2020-09-15] MEDS ORDERED: ONDANSETRON INJ 2 MG/ML 2 ML VIAL IV PRN (19:39)
[2020-09-15] MEDS ORDERED: PNEUMOCOCCAL POLYSACCHARIDES 25 MCG/0.5 ML VIAL/SYR IM ONE (20:10)
[2020-09-15] MEDS: HEPARIN SOD 5,000 UNIT/0.5 ML VIAL SQ SCH (20:12)
[2020-09-15] MEDS ORDERED: CLOPIDOGREL BISULFATE 75 MG TAB PO ONE (20:15)
[2020-09-15] MEDS ORDERED: ATORVASTATIN 40 MG TAB PO SCH (21:00)
[2020-09-16 06:51] LABS: Basophils # (auto) 0.06 K/uL (0-0.2); Basophils % (auto) 1.1 %; Eosinophils # (auto) 0.45 K/uL (0-0.5); Eosinophils % (auto) 8.6 %; Hematocrit (blood only) 44.2 % (42-52); Hemoglobin 15.8 g/dL (14.0-18.0); Lymphocytes # (auto) 1.72 K/uL (1.2-3.4); Lymphocytes % (auto) 32.7 %; Mean Corpuscular Hemoglobin 34.4 pg (25-34); Mean Corpuscular Hgb Conc 35.7 g/dL (32-36); Mean Corpuscular Volume 96.3 fL (80-100); Mean Platelet Volume 9.5 fL (7.4-10.4); Monocytes # (auto) 0.47 K/uL (0.11-0.59); Monocytes % (auto) 8.9 %; Neutrophils # (auto) 2.56 K/uL (1.4-6.5); Neutrophils % (auto) 48.7 %; Platelet Count 183 K/uL (130-400); RDW Coefficient of Variation 12.6 % (11.5-14.5); Red Blood Count 4.59 M/uL (4.7-6.1); White Blood Count 5.26 K/uL (4.8-10.8)
[2020-09-16] MEDS: HEPARIN SOD 5,000 UNIT/0.5 ML VIAL SQ SCH (07:18)
[2020-09-16 07:28] LABS: BUN Creatinine Ratio 12.9 (10-20); Calcium 9.1 mg/dl (8.5-10.1); Creatinine Clr Calc Pharmacy 60.8 ml/min; Est GFR (African American) 76.1 ml/min; Est GFR (Non-African American) 65.7 ml/min; Potassium 4.2 mmol/L (3.5-5.1)
[2020-09-16 07:37] LABS: Estimated Average Glucose 111 mg/dl; Hemoglobin A1C 5.5 % (4.5-5.6)
[2020-09-16 07:45] VITALS: BP 124/74; TEMP 97.9; O2SAT 96
--- NOTE | 2020-09-16 08:26 | Magnetic Resonance Report ---
MRI OF THE BRAIN WITHOUT CONTRAST CLINICAL HISTORY: Transient ischemic attack COMPARISON STUDY: Noncontrast head CT dated 09/15/2020, MRI the brain dated 12/14/2019 FINDINGS: Sagittal T1, axial diffusion, proton density and T2 weighted axial, coronal FLAIR, and axial T1-weigh chato images were acquired. No intra or extra-axial mass lesions are visualized Axial diffusion-weighted images reveal no evidence of acute or subacute infarction. There is stable ventricular dilatation, finding which is felt to be secondary to volume loss Proton density T2-weighted and FLAIR images reveal stable moderately extensive foci of increased T2 a nd FLAIR signal within the white matter, likely on a small vessel ischemic basis There are no abnormal flow voids. IMPRESSION: 1. No acute intracranial findings 2. No evidence of acute or subacute infarction 3. Moderately extensive white matter disease 4. Ventricular dilatation likely secondary to volume loss ACT 112: Negative or not required by law. Electronically signed by: Chip Renee M.D. 09/16/2020 8:25 AM
[2020-09-16] MEDS ORDERED: ASPIRIN 325 MG ECTAB PO SCH (09:00)
[2020-09-16] MEDS ORDERED: CLOPIDOGREL BISULFATE 75 MG TAB PO SCH (09:00)
--- NOTE | 2020-09-16 09:17 | XCELERA ---
[id number]
--- NOTE | 2020-09-16 12:47 | Neurology Consultation ---
Date of Consultation September 16, 2020 Assessment & Plan (1) Stroke-like symptoms: David Bolaños is a 80 yo man w/ PMH of HTN, HLD, h/o TIA, BPH, alcohol use disorder and h/o skin cancer who p/t [facility] with acute onset of word finding difficulty. Symptom localization: left MCA vs left LION HUNTER (thalamic aphasia) Stroke mechanism: flow failure given known intracranial stenosis vs cardioembolic, cannot r/o word finding difficulty in the setting of likely MCI given CTH/MRI brain findings of significant atrophy Stroke WorkUp: - CT head: no hemorrhage or hypodensity, moderate generalized atrophy with ex vacuo dilation, moderate SVID present - CTA head/neck: shows no LVO or aneurysm, multi-focal intracranial atherosclerosis causing moderate to severe focal stenosis of R M2, R P1; left LION HUNTER. - MRI brain: shows no acute infarct, moderate generalized atrophy with front otemporal predominance and ex vacuo dilation, moderate to severe SVID, no microhemorrhages noted - TTE: EF 55-60%, no valvular pathology noted - Telemetry: sinus bradycardia to sinus rhythm - A1c: 5.5 - FLP: 50 - Troponin, TSH: negative, pending Stroke Management: - Acute treatment: ASA - Continuous cardiac monitoring, consider 30 day event monitor as outpatient if telemetry here unrevealing - Vitals, Neurochecks, NIHSS per unit routine - BP parameters: SBP CAP 180, restart home anti-hypertensives for goal normotension - Complete ischemic stroke workup with B12/TSH (ordered to have done prior to discharge) - Consult speech, PT, OT for supportive management - Will financial aid counselor concerning stroke education, smoking cessation, healthy diet, physical activity, weight loss - Follow up with PCP for assistance with outpatient goals (BP <130/80, LDL <70, A1c <7) - Follow up in neurology clinic in 6-8 weeks with MOIRA Marcos, to check in post-hospitalization Secondary Stroke Prevention: - Antiplatelet: ASA 81mg po daily/plavix 75mg dailyfor maximal medical therapy given extent of intracranial atherosclerosis (ok to transition to just ASA 81mg daily for sugery that will likely need to be re-scheduled for at least 4 weeks from now given c/f TIA off aspirin) - Anticoagulation: Not indicated at this time - Statin: continue home Atorvastatin 40mg daily HTN: - BP parameters, as above - Restart home medications with goal of lowering BP to normotension over next 3- 4 days FEN/GI: - Diet: Cardiac HH diet and PO meds given absence of bulbar signs or symptoms - Monitor lytes and replete PRN Glucose Control: - Sliding scale insulin and accuchecks per primary team to avoid hyperglycemia Thank you for this interesting consult. Plan of care was discussed with primary team. Please call with any questions. 40 minutes was spent [id number] with patient, with more than 50% spent on counseling/coordination of care/charting. (2) Hypertension: (3) Hyperlipidemia: History of Present Illness Attending Physician: Yariel Clayton DO History of Present Illness David Bolaños is a 80 yo man w/ PMH of HTN, HLD, h/o TIA, BPH, and h/o skin cancer who p/t [facility] with acute onset of word finding difficulty. 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 In the ED, was afebrile, BP 157/87, heart rate 89, respiratory 20, satting 90% room air. Labs notable for WBC 5.69, hemoglobin 16.5 with MCV 96.7, platelets 206, electrolytes within normal, creatinine 1.23, glucose 122, INR 1.1, calcium/magnesium within normal, LFTs within normal, troponin negative, UA no infection. Imaging independently reviewed. CT head shows no hemorrhage or hypodensity, moderate generalized atrophy with ex vacuo dilation, moderate SVID present. CTA head and neck shows no LVO or aneurysm, multi-focal intracranial atherosclerosis causing moderate to severe focal stenosis of R M2, R P1; left LION HUNTER. MRI brain shows no acute infarct, moderate generalized atrophy with frontotemporal predominance and ex vacuo dilation, moderate to severe SVID, no microhemorrhages noted. On examination, he reports that he was in his normal state of health until yesterday around lunchtime when he had acute onset of word finding difficulty. Denies any associated numbness, tingling, weakness, vision changes, facial droop, loss of consciousness, seizure-like activity or other associated neurological symptoms. Reports that symptoms lasted approximately 20 minutes and resolved. He had similar word finding difficulty 2020 that lasted a little bit longer but otherwise denies any other neurological symptoms. Does note that he was scheduled for surgery today and has been holding his aspirin for approximately the last 5 days. No signs any other medication changes, illnesses , injuries prior to this event. Patient Features: Admission NIHSS: 0 Admission Modified Heard Scale: 0 Time patient last seen well: 2pm on 09/15/20 Wake up stroke: No Intubation status: Not intubated Stroke Risk Factors: Hypertension: Y Hyperlipidemia: Y Atrial Fib: N Tobacco: N Diabetes: N Taking NOAC or warfarin: N Allergies Allergy/AdvReac Type Severity Reaction Status Date / Time No Known Drug Allergies Allergy Verified 09/15/20 15:57 Home Medications Medication Instructions Recorded Confirmed Type aspirin 81 mg tablet,delayed 81 mg PO QAM #90 tab 02/12/20 09/15/20 Rx release atorvastatin 40 mg tablet 40 mg PO QPM #90 tab 02/12/20 09/15/20 Rx acetaminophen [Tylenol Extra 500 mg PO Q6H PRN 09/15/20 09/15/20 History Strength] Patient History Medical History BPH (benign prostatic hyperplasia) Expressive aphasia H/O Mohs micrographic surgery for skin cancer Hyperlipidemia Osteoarthritis TIA (transient ischemic attack) Surgical History H/O shoulder surgery bilat History of arthroscopy of knee left History of colonoscopy Hx of surgical procedure removal of tongue growth with lazer> 5 yrs ago S/P trigger finger release left Family History Mother , age 83 Diabetes Father , age 83 of uncertain causes. No problems noted. Other No family history of adverse response to anesthesia Denies family history of Ovarian cancer Myocardial infarction Breast cancer Colorectal cancer Social History Smoking Status: Never smoker Second Hand Exposure: No; Hx Alcohol Use: Yes Alcohol type: beer Alcohol Intake Frequency Comment: Two beers each evening. He has done this for years. Hx Substance Use: No Preferred Language: Croatian Communication Ability: Effective Community Artist Required: No Beliefs That Will Affect Care: None marital status: Current Living Situation: Family Current Living Situation Comment: Lives with son. 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 Exam (Neuro) Physical Exam: General Exam: GEN: NAD, sitting down in examination bed. HEENT: No conjunctival injection, no rhinorrhea. CV: RRR on monitor, no significant edema. PULM: Nonlabored respirations on room air. Neuro Exam: MS: Awake and Alert. Oriented to person, place, and date. Speech fluent and appropriate without dysarthria or paraphasic errors. Language intact including naming, comprehension, repetition. Cognition and memory grossly intact. Attention intact. No neglect. CN: Visual mooney full, + blink to threat bilaterally. No extinction to double simultaneous stimuli. Normal fundoscopic exam. PERRLA OU. EOMI without nystagmus. Facial sensation intact to LT. Facial muscles full and symmetric. Hearing intact to conversation. Shoulder shrug normal. MOTOR: Normal bulk and tone. No pronator drift. BUE strength 5/5 at deltoids, biceps, triceps, wrist flexors and extensors, and finger flexors bilaterally. BLE strength 5/5 at iliopsoas, hamstrings, quadriceps, tibialis anterior, and gastrocnemius bilaterally. REFLEXES: 1+ at biceps, triceps, brachioradialis, absent patella, and absent Achilles bilaterally. Flexor plantar responses bilaterally. SENSORY: Intact to LT/vibration throughout, no extinction to double simultaneous stimuli. COORDINATION: No dysmetria or ataxia on [id number] bilaterally. Normal Tia bilaterally. GAIT: Normal gait and arm swing. NIH STROKE SCALE 1A. Level of Consciousness (0-3) = 0 1B. LOC Questions (0-2) = 0 1C. LOC Commands (0-2) = 0 2. Best Horizontal Gaze (0-2) = 0 3. Visual Mooney (0-3) = 0 4. Facial Palsy (0-3) = 0 5. Motor Arm Right (0-4) = 0 Left (0-4) = 0 6. Motor Leg Right (0-4) = 0 Left (0-4) = 0 7. Limb Ataxia (0-2) = 0 8. Sensory (0-2) = 0 9. Best Language (0-3) = 0 10. Dysarthria (0-2) = 0 11. Extinction and Inattention (0-2) = 0 NIHSS TOTAL = 0 Results & Data ([facility]) Vital Signs (Past 12 Hours) Vital Signs Temp Pulse Pulse Resp BP Pulse Ox Pulse Ox 09/16/20 08:44 59 L 09/16/20 08:41 96 09/16/20 07:44 36.6 C 75 16 124/74 96 09/16/20 03:44 36.5 C 76 20 125/78 93 PG Care Time/CCT Total # of Minutes Spent Total Time Spent with Patient: Total time spent is greater than 50% in coordination of care (as documented) at patient's floor/unit and/or counseling patient: Coding Level of Care Code 42771 Office/Outpt Visit, Est Diagnoses Stroke-like symptoms R29.90 Hypertension I10 Hyperlipidemia E78.5
[2020-09-16] MEDS ORDERED: STROKE PATIENT DISCHARGE STA (15:19)
--- NOTE | 2020-09-16 15:24 | Discharge Summary ---
Date of Service September 16, 2020 Admission HPI Per Admitting Provider 80-year-old male who believes that around an hour prior to presentation, 2 PM, he began having difficulty getting his words out. He knew what he wanted to say but words were fragmented. No slurring. No headache. No chest pain or shortness of breath. No focal arm or leg weakness. Patient has had a TIA before approximately one year ago. His son brought him here in a private vehicle. He states that his symptoms seemed to last about 20 minutes and now he feels back to baseline. He states that he no longer is having difficulty with finding words or speaking. The patient states that he was quite hot at the time his symptoms began, he was outside although, he was in the shade. The patient has recently been in baseline health. He states that he is taking his medications as prescribed. No cough, cold or congestion. In the emergency department the attending spoke with the stroke attending correctional officer captain he felt no stroke work-up would be required. Patient had a CT scan of his head which showed no significant change compared to prior study although he has moderate atrophic changes and ventricular prominence with a ventricular white matter hypodensities consider microvascular changes seen. CT angiogram of the head and neck show high-grade stenosis within the right MCA right PERMIT AGENT and right distal vertebral arteries as described however no evidence of occlusion within the cerebral arteries no significant stenosis occlusion or dissection identified within the carotid or vertebral arteries Principal Diagnosis Transient ischemic attack Discharge Exam Constitutional WD/WN, vitals as above Neck trachea midline, no thyromegaly Respiratory normal respiratory effort, lungs clear to auscultation Cardiovascular RRR, no murmur, no edema Gastrointestinal (Abdomen) normal bowel sounds, soft, nontender, no hepatosplenomegaly Musculoskeletal no cyanosis or clubbing, extremities motor strength 5/5 Skin no rashes, warm and dry Neurologic patellar DTR's 2+ bilat, sensation intact and PERRL, EOMI, accommodation nl, no face palsy, no dysarthria Psychiatric A+Ox3, euthymic affect Lymphatic no cervical or axillary lymphadenopathy Discharge Data Allergies Allergy/AdvReac Type Severity Reaction Status Date / Time No Known Drug Allergies Allergy Verified 09/15/20 15:57 Consultations 09/15/20 16:12 ED Decision to Admit Stat 09/15/20 19:39 Consult Neurology Routine Ordered Studies 09/15/20 14:47 CT head/brain wo con Stat 09/15/20 14:59 CT angio head w con Stat CT angio neck with con Stat 09/15/20 19:39 MR brain wo con Routine Hospital Course (1) Transient ischemic attack: presented with about 20 minutes of expressive aphasia, similar to an episode about 1 year ago no stroke identified on MRI brain does have significant atherosclerosis of the cerebral arteries, specifically rig ht MCA, right PERMIT AGENT and distal right vertebral artery no stenosis of carotid arteries LDL is at goal, normal HbA1c, BP stable discussed with Dr. Junior, she recommends aspirin plus Plavix 75mg daily chronically due to severe plaque continue statin therapy of note, he held his aspirin 81mg daily for 6 days prior to this event for a planned shoulder surgery in the future he can hold the Plavix but should not hold aspirin as he would be high risk for stroke/TIA discharge to home with PCP and neurology follow up (2) Chronic cerebral ischemia: severe plaque in right MCA, PERMIT AGENT and vertebral artery add Plavix 75mg daily, continue aspirin 81mg daily and Lipitor 40mg daily (3) Expressive aphasia: see above under TIA symptoms resolved in 20 minutes (4) Hyperlipidemia: Hyperlipidemia history with atorvastatin 40 will discuss with neurology after we get lipid panel whether the pushes to 80 (5) Benign prostatic hyperplasia with urinary obstruction: Patient is without lower urinary tract symptoms at this point time Total Time Total Time Spent Total Time Spent (In Minutes): 32 Total Time Includes: Examination of the Patient, Discharge Planning, Medication Reconciliation and Communication With Other Providers Discharge Plan Discharge Items Patient Disposition: Home - Self-Care Reason For Visit: TIA Discharge Diagnosis: Transient ischemic attack Condition on Discharge: Good Goals: follow up with PCP and neurology secondary stroke prevention with aspirin and Plavix daily Activity: Resume your previous activity Driving/Machine Use: No limitations Weightbearing: Full weightbearing Non-emergency contact: Primary Care Provider and Neurologist Call non-emergency contact if: you have any medication questions and your symptoms worsen Follow-up/Referrals: Arsen Reyez MD [Primary Care Provider] - 09/20/20 10:30 am (one week) Ananya Art PA-C [Physician Lumber Puller] - 10/28/20 10:00 am (6-8 weeks) Diet: Heart Healthy Addtl Attending Provider Instructions: Medications: - PLAVIX: 75mg daily, take this with aspirin due to severe cerebral artery atherosclerosis no other new medications Transient ischemic attack MRI brain negative for stroke angiography of vessels shows that carotid arteries do NOT have severe disease but there is evidence of severe disease in the middle and posterior cerebral artery as well as vertebral artery no atrial fibrillation on monitor, will arrange for outpatient monitor echocardiogram is normal LDL (bad cholesterol) and HDL (good cholesterol) are at goal, no evidence of diabetes blood pressure is well controlled as far as shoulder surgery, you will now need to wait 4 weeks since you had the TIA also, in the future you can stop the Plavix one week prior to surgery but will need to stay on the aspirin as you are too high risk to be off of it Risk Factors for Stroke: You can reduce your chances of stroke by working with your medical provider to adopt a healthy lifestyle. Some specific ways to lower your chance of stroke are: * If you are a smoker, now is the time to stop smoking cigarettes * If you are diabetic, improve the control of your blood sugars * Avoid excessive amounts of alcohol * Control high blood pressure * Lose weight if you are overweight * Be sure to lead an active lifestyle * Eat a healthy diet low in salt, cholesterol and fat You should know about other risk factors for stroke that you are unable to control. These include: * Age 55 years or older * Male gender * Certain racial groups: , or / * Family History of Stroke, Mini stroke or Heart Attack * Sickle Cell Disease Follow Up: It is important for you to keep your follow up appointments with your medical provider. Who to Call and When: Medical Emergencies: Call 911 immediately if you experience any of the following warning signs and symptoms of Stroke: * Sudden numbness or weakness of the face, arm or leg, especially on one side of the body * Sudden confusion, trouble speaking or understanding * Sudden trouble seeing in one or both eyes * Sudden trouble walking, dizziness, loss of balance or coordination * Sudden severe headache with no cause Do not delay calling 911 if you experience any warning signs or symptoms of a stroke. Delay in seeking medical attention may affect what treatments can be given to you. . Pending Studies at Discharge: No Stand-Alone Forms: Medications to Prevent Stroke, My Co[employer], Smoking Cessation Medications and DC Order Prescriptions: New clopidogrel 75 mg Tablet 75 mg PO QAM 30 Days Qty: 30 RF: 3 Continued aspirin 81 mg tablet,delayed release (DR/EC) 81 mg PO QAM Qty: 90 RF: 3 atorvastatin 40 mg tablet 40 mg PO QPM Qty: 90 RF: 3 acetaminophen [Tylenol Extra Strength] 500 mg Tablet 500 mg PO Q6H PRN (Reason: pain) RF: 0 Discharge Orders: Discharge Order (Routine); Ordered 09/16/20 Ordered By: Yariel Clayton Admission Data Admit Date/Time: 09/15/20 16:36 Attending Provider: Yariel Clayton Admit Provider: Forrest Bennett Primary Care Provider: Arsen Reyez Other Providers: Forrest Bennett ; Gennaro Vázquez Other Interventions: Discharge Summary Assessment (RN) Last Done: 09/16/20 15:00 Coding Level of Care Code 37699 OBS Care - Discharge Diagnoses Transient ischemic attack G45.9 Chronic cerebral ischemia I67.82 Expressive aphasia R47.01 Hyperlipidemia E78.5 Benign prostatic hyperplasia with urinary obstruction N40.1; N13.8
[2020-09-16 15:27] VITALS: PULSE 75
--- NOTE | 2020-09-16 15:38 | Pharmacy Report ---
Pharmacist Stroke Counseling - Date of Service September 16, 2020 - Scope: Pharmacy has been consulted to provide medication discharge counseling for this patient admitted with transient ischemic attack as per the Pharmacist Discharge Counseling for Stroke Patients Protocol. - Medications on Discharge: Home Medications Medication Instructions Recorded Confirmed acetaminophen [Tylenol Extra 500 mg PO Q6H PRN 09/15/20 09/15/20 Strength] New Rx's Medication Instructions Recorded aspirin 81 mg tablet,delayed 81 mg PO QAM #90 tab 02/12/20 release atorvastatin 40 mg tablet 40 mg PO QPM #90 tab 02/12/20 clopidogrel 75 mg PO QAM 30 Days #30 tab 09/16/20 - Action: The above medications, specifically ones for stroke treatment/prophylaxis, have been reviewed in detail with the patient and/or patient support representative(s) prior to discharge. This includes indication, common adverse reactions, drug interactions, and medication administration. Medication counseling has been emp loyed using the teach-back method to ensure understanding. - Outcome: The patient and/or patient support representative(s) have demonstrated understanding of the medications. Additional comments: * Spoke with patient on telephone prior to discharge to review medications * Only new Rx is Plavix. He was already taking aspirin prior to admission. Explained indication, advised to monitor for bleeding and bruising. * LDL excellent at goal <70; he confirms taking atorvastatin daily. Advised to continue good adherence * Advised to avoid NSAID's to reduce bleeding risk while on dual antiplatelet therapy Thank you for allowing pharmacy to be involved in the care of this patient. Please call [phone] with any additional questions
== END 2020-09-16 16:45 | disposition home or self-care (01) ==
LOC: ED 14:22 → 2E 14:22 → SUATTDRO 16:36 → 2E 19:26